=== PATIENT | male | born 1935 | race Caucasian/White ===

== ENCOUNTER 2023-03-24 15:36 | Observation (INO) | payer MEDICARE ==
[2023-03-24] MEDS ORDERED: DUONEB 0.5-3 MG/3 ml Neb IH ONE (15:43)
[2023-03-24] MEDS: DUONEB 0.5-3 MG/3 ml Neb IH ONE (15:49)
[2023-03-24 16:09] LABS: BASOPHIL % 0.3 % (0.0-0.4); Basophil (Absolute #) 0.06 x10^3/uL (0-0.4); Eosinophil % 0.1 % (0.00-5.0); Eosinophil (Absolute #) 0.02 x10^3/uL (0-0.5); Hematocrit 31.3 % (42-50); Hemoglobin 10.1 g/dL (12.5-18.0); IMMATURE GRAN # 0.12 x10^3u/L (0.00-0.03); IMMATURE GRAN % 0.7 % (0.00-0.4); Lymphocyte (Absolute #) 0.51 x10^3/uL (1.0-4.6); Lymphocytes % 2.8 % (24.0-44.0); Mean Cell Volume 84.1 fL (78-100); Mean Corpuscular Hemoglobin 27.2 pg (26-32); Mean Corpuscular Hgb Concent. 32.3 g/dL (32-36); Mean Platelet Volume 10.4 fL (7.5-11.0); Monocyte (Absolute #) 3.03 x10^3/uL (0.0-1.3); Monocytes % 16.6 % (0.0-12.0); Neutrophil % 79.5 % (36.0-66.0); Platelet Count 316 x10^3/uL (150-450); Red Blood Count 3.72 x10^6/uL (4.1-5.6); Red Cell Distribution Width 17.1 % (11.5-14.0); White Blood Count 18.2 x10^3/uL (4.0-10.5)
[2023-03-24 16:24] LABS: ALBUMIN 4.4 g/dL (3.5-5.0); ANION GAP 12.4 MEQ/L (5-15); BILIRUBIN,TOTAL 0.6 mg/dL (0.2-1.3); Calcium 9.3 mg/dL (8.4-10.2); Creatinine 1 0.51 mg/dL (0.66-1.25); EST GLOMERULAR FILTRATION RATE 99.4 ML/MIN; Total Protein 7.4 g/dL (6.3-8.2)
--- NOTE | 2023-03-24 16:25 | XRAY ---
Indication: Dyspnea. Cough. Fatigue. Comparison: July 10, 2021 Portable chest again demonstrates COPD with new left lower lobe pneumonic infiltrate. Remaining heart and right lung unremarkable. Bony thorax intact again with osteopenia, degenerative changes, and dextroscoliosis.
[2023-03-24 16:41] LABS: PROTIME 10.9 SECONDS (9.4-12.5); PTT 36.8 SECONDS (25.1-36.5)
--- NOTE | 2023-03-24 16:44 | ERPHSYRPT ---
- History of Present Illness Source: patient Exam Limitations: other (Somewhat of a poor historian) Patient Subjective Stated Complaint: sob and back pain for past month Triage Nursing Assessment: C/o increased shortness of breath past month and worse today, States h/o copd, denies chest pain. Took albuterol and symbicort inhaler today and was his daughters inhalers. Has home o2. Physician History: Patient is an 87-year-old male who is 2 L O2 dependent at home and continues to smoke less than 1 pack a day presents with dyspnea for 5 days. Patient states he had a cough which has resolved and he has chronic coryza. He denies any chest pain, nausea, vomiting, diarrhea, melena, and hematochezia. Dyspnea is worse upon exertion. Timing/Duration: other (5 days) Activities at Onset: rest (Rest) Severity of Dyspnea-Max: severe Severity of Dyspnea-Current: moderate Possible Cause: frequent episodes Modifying Factors: Improves With: other (Dyspnea on exertion) Associated Symptoms: cough, weakness Allergies/Adverse Reactions: No Known Drug Allergies Allergy (Unverified 03/24/23 15:40) Home Medications: No Reportable Medications [No Reported Medications] 03/24/23 [History] Hx Influenza Vaccination/Date Given: No Immunizations Up to Date: No Travel Risk - International Travel Have you traveled outside of the country in past 3 weeks: No - Coronavirus Screening Are you exhibiting any of the following symptoms?: No Symptoms: Shortness of Breath Close contact with a COVID-19 positive Pt in past 14-21 Days: No - Vaccine Status Have you recieved a Covid-19 vaccination: No - Review of Systems Constitutional: No Symptoms, Malaise Eyes: No Symptoms Ears, Nose, & Throat: No Symptoms, Nose Pain, Nose Congestion Respiratory: Cough, Dyspnea Cardiac: No Symptoms Abdominal/Gastrointestinal: No Symptoms Genitourinary Symptoms: No Symptoms Musculoskeletal: No Symptoms Skin: No Symptoms Neurological: No Symptoms Psychological: No Symptoms Endocrine: No Symptoms Hematologic/Lymphatic: No Symptoms Immunological/Allergic: No Symptoms - Past Medical History Pertinent Past Medical History: No Neurological History: No Pertinent History ENT History: No Pertinent History Cardiac History: No Pertinent History Respiratory History: COPD Endocrine Medical History: No Pertinent History GI Medical History: No Pertinent History History: No Pertinent History Psycho-Social History: No Pertinent History Male Reproductive Disorders: No Pertinent History - Past Surgical History Past Surgical History: Yes Neuro Surgical History: No Pertinent History Cardiac: No Pertinent History Respiratory: No Pertinent History Gastrointestinal: No Pertinent History Genitourinary: No Pertinent History Musculoskeletal: No Pertinent History Male Surgical History: Other Other Surgical History: hydrocele surgery - Social History Smoking Status: Current every day smoker Exposure to second hand smoke: Yes Drug Use: none Patient Lives Alone: Yes - Nursing Vital Signs Nursing Vital Signs: Initial Vital Signs Temperature 97.9 F 03/24/23 15:41 Pulse Rate 130 H 03/24/23 15:41 Respiratory Rate 28 H 03/24/23 15:41 Blood Pressure 156/118 03/24/23 15:41 O2 Sat by Pulse Oximetry 90 L 03/24/23 15:41 Pain Scale Pain Intensity 0 Hypertensive, tachycardic, borderline sats. - Physical Exam General Appearance: mild distress Eye Exam: PERRL/EOMI Ears, Nose, Throat Exam: hearing grossly normal, normal ENT inspection, normal pharynx, No abnormal TM (R), No abnormal TM (L) Neck Exam: normal inspection, non-tender, No Brudzinski, No Kernig's, No me ningismus Respiratory Exam: respiratory distress (Mild to moderate upon arrival), diminished breath sounds (Markedly decreased breath sounds bilaterally upon presentation), prolonged expirations Cardiovascular/Chest Exam: tachycardia, No murmur Abdominal/Gastrointestinal Exam: soft, normal bowel sounds Extremity Exam: non-tender, normal range of motion, normal inspection, normal capillary refill Peripheral Pulses Exam: carotid (R): 2+, carotid (L): 2+ Neurologic Exam: alert, oriented x 3, cooperative, drawbridge operator II-XII nml as tested, normal mood/affect, nml station & gait, sensation nml Skin Exam: normal color, warm, dry Lymphatic Exam: No adenopathy SpO2 Interpretation: borderline oxygenation SpO2: 93 O2 Delivery: Nasal Cannula - Course EKG Interpreted by Me: RATE (Sinus tachycardia/rate 114/normal QT-QTc/LVH with strain pattern/mildly poor R wave progression/nonspecific ST wave changes/artifact present/interpreted contemporaneously per ER physician.) - Radiology Exams Chest X-ray Interpretation: Reviewed by me (Left lower lobe infiltrate per Rad) - CT Exams Chest CT Interpretation: Discussed w/radiologist (CTA of the chest/no PE/left lower lobe and lingular pneumonia with small effusion per radiologist.) Ordered Tests: Active Orders 24 hr Category Date Time Status Bedrest ROUTINE Activity 03/24/23 20:01 Active Call Admit Doctor for Orders ON ADMISSION Care 03/24/23 20:00 Active Code Status Order ROUTINE Care 03/24/23 20:00 Active EKG-ER Only STAT Care 03/24/23 15:42 Active Fall Protocol ROUTINE Care 03/24/23 20:[address] in Observation ROUTINE Care 03/24/23 20:00 Active Telemetry q6h Care 03/24/23 20:00 Active Heart-Healthy Diet Diet 03/25/23 Breakfast Active CHEST 1 VIEW (PORTABLE) Stat Exams 03/24/23 15:41 Completed CHEST WITH CONTRAST [CT] Stat Exams 03/24/23 17:59 Taken BLOOD CULTURE Stat Lab 03/24/23 17:26 Received CBC W DIFF Stat Lab 03/24/23 16:04 Completed CMP Stat Lab 03/24/23 16:04 Completed D-DIMER QUANTITATIVE Stat Lab 03/24/23 17:26 Completed Lactic Acid Stat Lab 03/24/23 17:06 Completed NT PRO BNPII Stat Lab 03/24/23 16:04 Completed PROTIME WITH INR Stat Lab 03/24/23 16:04 Completed PTT Stat Lab 03/24/23 16:04 Completed TROPONIN Q4H Lab 03/24/23 16:04 Completed TROPONIN Q4H Lab 03/24/23 18:51 Completed TROPONIN Q4H Lab 03/24/23 23:45 Ordered Oxygen Nasal Cannula 2 lpm RT 03/24/23 20:00 Active Pulse Oximetry CONTINUOUS RT 03/24/23 20:01 Active Respiratory Therapy Assessment DAILY RT 03/24/23 15:50 Active Transfer Order Routine Transfer 03/24/23 Ordered Medication Summary Discontinued Medications Generic Name Dose Route Start Last Admin Trade Name Freq PRN Reason Stop Dose Admin Albuterol/Ipratropium 3 ml 03/24/23 15:40 03/24/23 15:49 Ipratropium/Albuterol Sulfate 3 Ml Ampul.Neb IH 03/24/23 15:41 3 ml STAT ONE Administration Albuterol/Ipratropium Confirm 03/24/23 15:43 Ipratropium/Albuterol Sulfate 3 Ml Ampul.Neb Administered 03/24/23 15:44 Dose 3 ml IH .STK-MED ONE Aspirin 324 mg 03/24/23 19:59 03/24/23 20:01 Aspirin 81 Mg Tab.Chew PO 03/24/23 20:00 324 mg STAT ONE Administration Aspirin Confirm 03/24/23 20:01 Aspirin 81 Mg Tab.Chew Administered 03/24/23 20:02 Dose 324 mg .ROUTE .STK-MED ONE Ceftriaxone Sodium 1 gm in 100 mls @ 200 mls/hr 03/24/23 16:53 03/24/23 18:25 Rocephin 1 Gm / 100 Ml Nacl IV 03/24/23 17:22 Infused STAT ONE Infusion Ceftriaxone Sodium Confirm 03/24/23 16:58 Rocephin 1 Gm / 100 Ml Nacl Administered 03/24/23 16:59 Dose 1 gm in 100 mls @ ud IV .STK-MED ONE Azithromycin 500 mg in 250 mls @ 250 mls/hr 03/24/23 19:48 03/24/23 19:58 Zithromax 500 Mg/ 250 Ml Nacl Premix IV 03/24/23 20:47 250 mls/hr STAT STA 250 mls/hr Administration Azithromycin Confirm 03/24/23 19:52 Zithromax 500 Mg/ 250 Ml Nacl Premix Administered 03/24/23 19:53 Dose 500 mg in 250 mls @ ud IV .STK-MED ONE Lab/Rad Data: Laboratory Result Diagrams 03/24/23 16:04 03/24/23 16:04 Laboratory Results 03/24/23 03/24/23 03/24/23 Range/Units 18:51 17:26 17:06 WBC (4.0-10.5) x10^3/uL RBC (4.1-5.6) x10^6/uL Hgb (12.5-18.0) g/dL Hct (42-50) % MCV (78-100) fL MCH (26-32) pg MCHC (32-36) g/dL RDW (11.5-14.0) % Plt Count (150-450) x10^3/uL MPV (7.5-11.0) fL Gran % (36.0-66.0) % Immature Gran % (Auto) (0.00-0.4) % Nucleat RBC Rel Count (0.00-0.1) % Eos # (Auto) (0-0.5) x10^3/uL Immature Gran # (Auto) (0.00-0.03) x10^3u/L Absolute Lymphs (auto) (1.0-4.6) x10^3/uL Absolute Monos (auto) (0.0-1.3) x10^3/uL Absolute Nucleated RBC (0.00-0.01) x10^3u/L Lymphocytes % (24.0-44.0) % Monocytes % (0.0-12.0) % Eosinophils % (0.00-5.0) % Basophils % (0.0-0.4) % Absolute Granulocytes (1.4-6.9) x10^3/uL Basophils # (0-0.4) x10^3/uL PT (9.4-12.5) SECONDS INR (0.8-3.0) APTT (25.1-36.5) SECONDS D-Dimer 0.99 H* (0.0-0.50) mg/L Sodium (137-145) mmol/L Potassium (3.5-5.1) mmol/L Chloride (98-107) mmol/L Carbon Dioxide (22-30) mmol/L Anion Gap (5-15) MEQ/L BUN (9-20) mg/dL Creatinine (0.66-1.25) mg/dL Estimated GFR ML/MIN Glucose (74-106) mg/dL Lactic Acid 1.3 (0.4-2.0) Calcium (8.4-10.2) mg/dL Total Bilirubin (0.2-1.3) mg/dL AST (17-59) U/L ALT (0-50) U/L Alkaline Phosphatase (38-126) U/L Troponin I 0.053 H* (0.000-0.034) ng/mL NT-Pro-B Natriuret Pep (<300) pg/mL Serum Total Protein (6.3-8.2) g/dL Albumin (3.5-5.0) g/dL Influenza Type A Ag (NEGATIVE) Influenza Type B Ag (NEGATIVE) RSV (PCR) (NEGATIVE) SARS-CoV-2 (PCR) (NEGATIVE) Slides for Path Review 03/24/23 03/24/23 03/24/23 Range/Units 16:07 16:04 16:04 WBC (4.0-10.5) x10^3/uL RBC (4.1-5.6) x10^6/uL Hgb (12.5-18.0) g/dL Hct (42-50) % MCV (78-100) fL MCH (26-32) pg MCHC (32-36) g/dL RDW (11.5-14.0) % Plt Count (150-450) x10^3/uL MPV (7.5-11.0) fL Gran % (36.0-66.0) % Immature Gran % (Auto) (0.00-0.4) % Nucleat RBC Rel Count (0.00-0.1) % Eos # (Auto) (0-0.5) x10^3/uL Immature Gran # (Auto) (0.00-0.03) x10^3u/L Absolute Lymphs (auto) (1.0-4.6) x10^3/uL Absolute Monos (auto) (0.0-1.3) x10^3/uL Absolute Nucleated RBC (0.00-0.01) x10^3u/L Lymphocytes % (24.0-44.0) % Monocytes % (0.0-12.0) % Eosinophils % (0.00-5.0) % Basophils % (0.0-0.4) % Absolute Granulocytes (1.4-6.9) x10^3/uL Basophils # (0-0.4) x10^3/uL PT (9.4-12.5) SECONDS INR (0.8-3.0) APTT (25.1-36.5) SECONDS D-Dimer (0.0-0.50) mg/L Sodium (137-145) mmol/L Potassium (3.5-5.1) mmol/L Chloride (98-107) mmol/L Carbon Dioxide (22-30) mmol/L Anion Gap (5-15) MEQ/L BUN (9-20) mg/dL Creatinine (0.66-1.25) mg/dL Estimated GFR ML/MIN Glucose (74-106) mg/dL Lactic Acid (0.4-2.0) Calcium (8.4-10.2) mg/dL Total Bilirubin (0.2-1.3) mg/dL AST (17-59) U/L ALT (0-50) U/L Alkaline Phosphatase (38-126) U/L Troponin I 0.044 H* (0.000-0.034) ng/mL NT-Pro-B Natriuret Pep 2730 (<300) pg/mL Serum Total Protein (6.3-8.2) g/dL Albumin (3.5-5.0) g/dL Influenza Type A Ag NEGATIVE (NEGATIVE) Influenza Type B Ag NEGATIVE (NEGATIVE) RSV (PCR) NEGATIVE (NEGATIVE) SARS-CoV-2 (PCR) NEGATIVE (NEGATIVE) Slides for Path Review 03/24/23 03/24/23 03/24/23 Range/Units 16:04 16:04 16:04 WBC 18.2 H (4.0-10.5) x10^3/uL RBC 3.72 L (4.1-5.6) x10^6/uL Hgb 10.1 L (12.5-18.0) g/dL Hct 31.3 L (42-50) % MCV 84.1 (78-100) fL MCH 27.2 (26-32) pg MCHC 32.3 (32-36) g/dL RDW 17.1 H (11.5-14.0) % Plt Count 316 (150-450) x10^3/uL MPV 10.4 (7.5-11.0) fL Gran % 79.5 H (36.0-66.0) % Immature Gran % (Auto) 0.7 H (0.00-0.4) % Nucleat RBC Rel Count 0.0 (0.00-0.1) % Eos # (Auto) 0.02 (0-0.5) x10^3/uL Immature Gran # (Auto) 0.12 H (0.00-0.03) x10^3u/L Absolute Lymphs (auto) 0.51 L (1.0-4.6) x10^3/uL Absolute Monos (auto) 3.03 H (0.0-1.3) x10^3/uL Absolute Nucleated RBC 0.00 (0.00-0.01) x10^3u/L Lymphocytes % 2.8 L (24.0-44.0) % Monocytes % 16.6 H (0.0-12.0) % Eosinophils % 0.1 (0.00-5.0) % Basophils % 0.3 (0.0-0.4) % Absolute Granulocytes 14.50 H (1.4-6.9) x10^3/uL Basophils # 0.06 (0-0.4) x10^3/uL PT 10.9 (9.4-12.5) SECONDS INR 1.00 (0.8-3.0) APTT 36.8 H (25.1-36.5) SECONDS D-Dimer (0.0-0.50) mg/L Sodium 134 L (137-145) mmol/L Potassium 4.0 (3.5-5.1) mmol/L Chloride 97 L (98-107) mmol/L Carbon Dioxide 28 (22-30) mmol/L Anion Gap 12.4 (5-15) MEQ/L BUN 13 (9-20) mg/dL Creatinine 0.51 L (0.66-1.25) mg/dL Estimated GFR 99.4 ML/MIN Glucose 106 (74-106) mg/dL Lactic Acid (0.4-2.0) Calcium 9.3 (8.4-10.2) mg/dL Total Bilirubin 0.60 (0.2-1.3) mg/dL AST 25 (17-59) U/L ALT 18 (0-50) U/L Alkaline Phosphatase 65 (38-126) U/L Troponin I (0.000-0.034) ng/mL NT-Pro-B Natriuret Pep (<300) pg/mL Serum Total Protein 7.4 (6.3-8.2) g/dL Albumin 4.4 (3.5-5.0) g/dL Influenza Type A Ag (NEGATIVE) Influenza Type B Ag (NEGATIVE) RSV (PCR) (NEGATIVE) SARS-CoV-2 (PCR) (NEGATIVE) Slides for Path Review YES - Progress Progress Note: 03/24/23 21:30 Nursing note and vital signs reviewed. No food or housing insecurity noted. Additional history per EMS. All lab results reviewed and shared with patient. Chest x-ray result reviewed and shared with patient. CTA of chest reviewed and shared with patient. 03/24/23 21:31 Patient with left lower lobe pneumonia and a small effusion on chest x-ray and CTA of the chest. Patient without evidence of PE at this time. Patient has a mildly elevated troponin with a second opponent just slightly higher than the first. 03/24/23 21:32 Patient denied chest pain during his entire ER visit. No acute EKG changes noted while patient was in the ER. Blood cultures x 2 done in the ER, 1 g IV Rocephin, 500 mg IV Zithromax, 324 mg ASA p.o. 03/24/23 21:33 Patient with observation admit due to pneumonia on CT and chest x-ray and also mildly elevated troponin. Patient is a full code. Observation admit per Dr. Del Rio. Blood Culture(s) Obtained: Yes Antibiotics given: Yes Discussed with : Armando Counseled pt/family regarding: lab results, diagnosis, rad results Medical Desision Making - Independent Historian Additional History obtained from: EMS - Discussion of managment Care discussed with:: hospitalist Reviewed:: Test results, Need for additional workup Agreed on:: place in obs Will see patient: in hospital - Diagnostic Testing Diagnostic test were ordered, analyzed, and reviewed by me: Yes Radiological Interpretation: Reviewed by me - Risk of complications The pt has a high risk of morbidity or mortality based on: Drug therapy requiring intensive monitoring for toxicity - Departure Departure Disposition: Observation Clinical Impression: Pneumonia, Elevated troponin Condition: Stable Critical Care Time: No Referrals: ELLIOTT AMATO [Primary Care Provider] - Follow up/PCP as directed
[2023-03-24 16:48] LABS: INFLUENZA A NEGATIVE (NEGATIVE); INFLUENZA B NEGATIVE (NEGATIVE); RESPIRATORY SYNCTIAL VIRUS NEGATIVE (NEGATIVE); SARS-CoV-2 Xpert Express NEGATIVE (NEGATIVE)
[2023-03-24 16:55] LABS: Slide Review 1 YES
[2023-03-24] MEDS ORDERED: ROCEPHIN 1 GM / 100 ML NaCl 1 GM/100 ML IVPB IV ONE (16:58)
[2023-03-24] MEDS: ROCEPHIN 1 GM / 100 ML NaCl 1 GM/100 ML IVPB IV ONE (17:13)
[2023-03-24] MEDS ORDERED: Zithromax 500 MG/ 250 ML NaCl Premix 500 MG/250 ML IVPB IV ONE (19:52)
[2023-03-24] MEDS: Zithromax 500 MG/ 250 ML NaCl Premix 500 MG/250 ML IVPB IV STA (19:58)
[2023-03-24] MEDS ORDERED: BABY ASPIRIN 81 MG CHEW ONE (20:01)
[2023-03-24] MEDS: BABY ASPIRIN 81 MG CHEW PO ONE (20:01)
[2023-03-24] MEDS: ROCEPHIN 1 GM / 100 ML NaCl 1 GM/100 ML IVPB IV SCH (23:28)
[2023-03-24] MEDS: Nicoderm CQ 21 MG TOP SCH (23:37)
[2023-03-24] MEDS: TYLENOL 325 MG PO PRN (23:40)
--- NOTE | 2023-03-24 23:44 | PCM.HP ---
History of Present Illness - Chief Complaint Chief Complaint: PNEUMONIA, ELEVATED TROPONINS Date: 03/24/23 History of Present Illness: is a 87 year old male (with a history of COPD on home oxygen but lost to follow up with only use of prn MDIs from family members) who presents to the ED with increased shortness of breath and dyspnea with exertion over the past month and worse today. He also had a cough which improved and reports chronic coryza. He denies any history of CAD or cardiac stress test, and any diabetes. No chest pain. He continues to smoke. He feels like his dyspnea has improved after initiation of ED treatment. - Review of Systems Constitutional: No Symptoms Eyes: No Symptoms Ears, Nose, & Throat: No Symptoms Respiratory: Cough, Short Of Breath, Wheezing Cardiac: No Symptoms Abdominal/Gastrointestinal: No Symptoms Genitourinary Symptoms: No Symptoms Musculoskeletal: No Symptoms Skin: No Symptoms Neurological: No Symptoms Psychological: No Symptoms Endocrine: No Symptoms Hematologic/Lymphatic: No Symptoms Immunological/Allergic: No Symptoms All Other Systems: Reviewed and Negative Medications & Allergies Home Medications: Home Medication List No Reportable Medications [No Reported Medications] 03/24/23 [History Confirmed 03/24/23] Allergies/Adverse Reactions: Allergies Allergy/AdvReac Type Severity Reaction Status Date / Time No Known Drug Allergies Allergy Unverified 03/24/23 15:40 - Past Medical History Past Medical History: No Neurological History: No Pertinent History ENT History: No Pertinent History Cardiac History: No Pertinent History Respiratory History: COPD Endocrine Medical History: No Pertinent History Musculoskelatal History: No Pertinent History GI Medical History: Hernia History: No Pertinent History Pyscho-Social History: No Pertinent History Male Reproductive Disorders: No Pertinent History - Past Surgical History Past Surgical History: Yes Neuro Surgical History: No Pertinent History Cardiac History: No Pertinent History Respiratory Surgery: No Pertinent History GI Surgical History: No Pertinent History Genitourinary Surgical Hx: No Pertinent History Musculskeletal Surgical Hx: No Pertinent History Male Surgical History: Other Other Surgical History: hydrocele surgery - Social History Smoking Status: Current every day smoker How long have you smoked: 79 YEARS Exposure to second hand smoke: Yes Alcohol: Daily Drug Use: none - Physical Exam Vital Signs: Vital Signs - 24 hr Temp Pulse Resp BP BP Pulse Ox 03/24/23 22:00 99 03/24/23 21:47 98.1 F 108 H 22 133/63 99 03/24/23 21:36 93 L 03/24/23 20:01 97 H 22 152/73 94 L 03/24/23 19:30 150/73 99 03/24/23 19:18 137/72 100 03/24/23 19:00 93 H 22 137/72 96 03/24/23 18:01 125/77 77 L 03/24/23 15:51 121 H 26 H 93 L 03/24/23 15:41 97.9 F 130 H 28 H 156/118 90 L General Appearance: no apparent distress, alert Neurologic Exam: alert, oriented x 3, cooperative, driver guard II-XII nml as tested, normal mood/affect Eye Exam: PERRL/EOMI, eyes nml inspection Ears, Nose, Throat Exam: normal ENT inspection Neck Exam: normal inspection, non-tender, supple, full range of motion Respiratory Exam: diminished breath sounds, prolonged expirations, wheezing Cardiovascular Exam: regular rate/rhythm, normal heart sounds Gastrointestinal/Abdomen Exam: soft, normal bowel sounds Back Exam: normal range of motion Extremity Exam: normal inspection, normal range of motion Skin Exam: normal color Results - Labs Lab/Micro Results: Lab Results-Last 24 Hours 03/24/23 03/24/23 03/24/23 Range/Units 16:04 16:04 16:04 WBC 18.2 H (4.0-10.5) x10^3/uL RBC 3.72 L (4.1-5.6) x10^6/uL Hgb 10.1 L (12.5-18.0) g/dL Hct 31.3 L (42-50) % MCV 84.1 (78-100) fL MCH 27.2 (26-32) pg MCHC 32.3 (32-36) g/dL RDW 17.1 H (11.5-14.0) % Plt Count 316 (150-450) x10^3/uL MPV 10.4 (7.5-11.0) fL Gran % 79.5 H (36.0-66.0) % Immature Gran % (Auto) 0.7 H (0.00-0.4) % Nucleat RBC Rel Count 0.0 (0.00-0.1) % Eos # (Auto) 0.02 (0-0.5) x10^3/uL Immature Gran # (Auto) 0.12 H (0.00-0.03) x10^3u/L Absolute Lymphs (auto) 0.51 L (1.0-4.6) x10^3/uL Absolute Monos (auto) 3.03 H (0.0-1.3) x10^3/uL Absolute Nucleated RBC 0.00 (0.00-0.01) x10^3u/L Lymphocytes % 2.8 L (24.0-44.0) % Monocytes % 16.6 H (0.0-12.0) % Eosinophils % 0.1 (0.00-5.0) % Basophils % 0.3 (0.0-0.4) % Absolute Granulocytes 14.50 H (1.4-6.9) x10^3/uL Basophils # 0.06 (0-0.4) x10^3/uL PT 10.9 (9.4-12.5) SECONDS INR 1.00 (0.8-3.0) APTT 36.8 H (25.1-36.5) SECONDS D-Dimer (0.0-0.50) mg/L Sodium 134 L (137-145) mmol/L Potassium 4.0 (3.5-5.1) mmol/L Chloride 97 L (98-107) mmol/L Carbon Dioxide 28 (22-30) mmol/L Anion Gap 12.4 (5-15) MEQ/L BUN 13 (9-20) mg/dL Creatinine 0.51 L (0.66-1.25) mg/dL Estimated GFR 99.4 ML/MIN Glucose 106 (74-106) mg/dL Lactic Acid (0.4-2.0) Calcium 9.3 (8.4-10.2) mg/dL Total Bilirubin 0.60 (0.2-1.3) mg/dL AST 25 (17-59) U/L ALT 18 (0-50) U/L Alkaline Phosphatase 65 (38-126) U/L Troponin I (0.000-0.034) ng/mL NT-Pro-B Natriuret Pep (<300) pg/mL Serum Total Protein 7.4 (6.3-8.2) g/dL Albumin 4.4 (3.5-5.0) g/dL Influenza Type A Ag (NEGATIVE) Influenza Type B Ag (NEGATIVE) RSV (PCR) (NEGATIVE) SARS-CoV-2 (PCR) (NEGATIVE) Slides for Path Review YES 03/24/23 03/24/23 03/24/23 Range/Units 16:04 16:04 16:07 WBC (4.0-10.5) x10^3/uL RBC (4.1-5.6) x10^6/uL Hgb (12.5-18.0) g/dL Hct (42-50) % MCV (78-100) fL MCH (26-32) pg MCHC (32-36) g/dL RDW (11.5-14.0) % Plt Count (150-450) x10^3/uL MPV (7.5-11.0) fL Gran % (36.0-66.0) % Immature Gran % (Auto) (0.00-0.4) % Nucleat RBC Rel Count (0.00-0.1) % Eos # (Auto) (0-0.5) x10^3/uL Immature Gran # (Auto) (0.00-0.03) x10^3u/L Absolute Lymphs (auto) (1.0-4.6) x10^3/uL Absolute Monos (auto) (0.0-1.3) x10^3/uL Absolute Nucleated RBC (0.00-0.01) x10^3u/L Lymphocytes % (24.0-44.0) % Monocytes % (0.0-12.0) % Eosinophils % (0.00-5.0) % Basophils % (0.0-0.4) % Absolute Granulocytes (1.4-6.9) x10^3/uL Basophils # (0-0.4) x10^3/uL PT (9.4-12.5) SECONDS INR (0.8-3.0) APTT (25.1-36.5) SECONDS D-Dimer (0.0-0.50) mg/L Sodium (137-145) mmol/L Potassium (3.5-5.1) mmol/L Chloride (98-107) mmol/L Carbon Dioxide (22-30) mmol/L Anion Gap (5-15) MEQ/L BUN (9-20) mg/dL Creatinine (0.66-1.25) mg/dL Estimated GFR ML/MIN Glucose (74-106) mg/dL Lactic Acid (0.4-2.0) Calcium (8.4-10.2) mg/dL Total Bilirubin (0.2-1.3) mg/dL AST (17-59) U/L ALT (0-50) U/L Alkaline Phosphatase (38-126) U/L Troponin I 0.044 H* (0.000-0.034) ng/mL NT-Pro-B Natriuret Pep 2730 (<300) pg/mL Serum Total Protein (6.3-8.2) g/dL Albumin (3.5-5.0) g/dL Influenza Type A Ag NEGATIVE (NEGATIVE) Influenza Type B Ag NEGATIVE (NEGATIVE) RSV (PCR) NEGATIVE (NEGATIVE) SARS-CoV-2 (PCR) NEGATIVE (NEGATIVE) Slides for Path Review 03/24/23 03/24/23 03/24/23 Range/Units 17:06 17:26 18:51 WBC (4.0-10.5) x10^3/uL RBC (4.1-5.6) x10^6/uL Hgb (12.5-18.0) g/dL Hct (42-50) % MCV (78-100) fL MCH (26-32) pg MCHC (32-36) g/dL RDW (11.5-14.0) % Plt Count (150-450) x10^3/uL MPV (7.5-11.0) fL Gran % (36.0-66.0) % Immature Gran % (Auto) (0.00-0.4) % Nucleat RBC Rel Count (0.00-0.1) % Eos # (Auto) (0-0.5) x10^3/uL Immature Gran # (Auto) (0.00-0.03) x10^3u/L Absolute Lymphs (auto) (1.0-4.6) x10^3/uL Absolute Monos (auto) (0.0-1.3) x10^3/uL Absolute Nucleated RBC (0.00-0.01) x10^3u/L Lymphocytes % (24.0-44.0) % Monocytes % (0.0-12.0) % Eosinophils % (0.00-5.0) % Basophils % (0.0-0.4) % Absolute Granulocytes (1.4-6.9) x10^3/uL Basophils # (0-0.4) x10^3/uL PT (9.4-12.5) SECONDS INR (0.8-3.0) APTT (25.1-36.5) SECONDS D-Dimer 0.99 H* (0.0-0.50) mg/L Sodium (137-145) mmol/L Potassium (3.5-5.1) mmol/L Chloride (98-107) mmol/L Carbon Dioxide (22-30) mmol/L Anion Gap (5-15) MEQ/L BUN (9-20) mg/dL Creatinine (0.66-1.25) mg/dL Estimated GFR ML/MIN Glucose (74-106) mg/dL Lactic Acid 1.3 (0.4-2.0) Calcium (8.4-10.2) mg/dL Total Bilirubin (0.2-1.3) mg/dL AST (17-59) U/L ALT (0-50) U/L Alkaline Phosphatase (38-126) U/L Troponin I 0.053 H* (0.000-0.034) ng/mL NT-Pro-B Natriuret Pep (<300) pg/mL Serum Total Protein (6.3-8.2) g/dL Albumin (3.5-5.0) g/dL Influenza Type A Ag (NEGATIVE) Influenza Type B Ag (NEGATIVE) RSV (PCR) (NEGATIVE) SARS-CoV-2 (PCR) (NEGATIVE) Slides for Path Review - Radiology Impressions Radiology Exams & Impressions: Radiology Procedures Category Date Time Status CHEST 1 VIEW (PORTABLE) Stat Exams 03/24/23 15:41 Completed CHEST WITH CONTRAST [CT] Stat Exams 03/24/23 17:59 Taken - Other Procedures and Tests Respiratory Therapy 03/24/23 15:50 Respiratory Therapy Assessment DAILY 03/24/23 20:00 Oxygen Nasal Cannula 2 lpm 03/24/23 22:17 RT Screen per Nursing Assess ONCE Smoking Cessation Education ONCE 03/24/23 22:45 EKG REPEAT IN AM Respiratory Therapy Consult ONCE Assessment/Plan (1) Pneumonia Current Visit: Yes Status: Acute Assessment & Plan: IV antibiotics. ST eval to rule out dysphagia due to LLL infiltrate. Code(s): J18.9 - PNEUMONIA, UNSPECIFIED ORGANISM (2) COPD exacerbation Current Visit: Yes Status: Acute Assessment & Plan: Nebs, steroids (IV), wean O2 as tolerated. Patient was reported to have saturations as low as 70% by EMS. Will need to asssess ambulatory O2 needs. Will need new prescriptions for a chronic regimen at discharge. CM to eval to [facility]. Will need referrals to PCP and pulmonology. Code(s): J44.1 - CHRONIC OBSTRUCTIVE PULMONARY DISEASE W (ACUTE) EXACERBATION (3) Cough Current Visit: Yes Status: Acute Assessment & Plan: Mucinex. Code(s): R05.9 - COUGH, UNSPECIFIED Telemedicine Encounter - Telemedicine Encounter Telemedicine Encounter: The entirety of this encounter was performed via Telemedicine"
[2023-03-25] MEDS: DUONEB 0.5-3 MG/3 ml Neb IH SCH (01:09)
[2023-03-25] MEDS ORDERED: Ecotrin 325 MG ONE (01:09)
[2023-03-25] MEDS: Ecotrin 325 MG PO SCH (01:10)
[2023-03-25 04:09] LABS: ANION GAP 9.3 MEQ/L (5-15); Absolute Neutrophil Ct (ANC) 9.47 x10^3/uL (1.4-6.9); BASOPHIL % 0.3 % (0.0-0.4); Basophil (Absolute #) 0.04 x10^3/uL (0-0.4); Calcium 8.8 mg/dL (8.4-10.2); Creatinine 1 0.54 mg/dL (0.66-1.25); EST GLOMERULAR FILTRATION RATE 97.7 ML/MIN; Eosinophil % 0.4 % (0.00-5.0); Eosinophil (Absolute #) 0.05 x10^3/uL (0-0.5); Hemoglobin 8.8 g/dL (12.5-18.0); IMMATURE GRAN # 0.08 x10^3u/L (0.00-0.03); IMMATURE GRAN % 0.7 % (0.00-0.4); Lymphocyte (Absolute #) 0.37 x10^3/uL (1.0-4.6); Lymphocytes % 3.1 % (24.0-44.0); Mean Cell Volume 83.3 fL (78-100); Mean Corpuscular Hemoglobin 27.2 pg (26-32); Mean Corpuscular Hgb Concent. 32.6 g/dL (32-36); Mean Platelet Volume 10.8 fL (7.5-11.0); Neutrophil % 79.5 % (36.0-66.0); Platelet Count 289 x10^3/uL (150-450); Red Blood Count 3.24 x10^6/uL (4.1-5.6); Red Cell Distribution Width 17.1 % (11.5-14.0); White Blood Count 11.9 x10^3/uL (4.0-10.5)
[2023-03-25 04:47] LABS: Slide Review 1 YES
[2023-03-25 05:02] LABS: TSH, 3RD Generation 2.28 mIU/L (0.47-4.68)
[2023-03-25] MEDS ORDERED: solu-MEDROL ONE (05:28)
[2023-03-25] MEDS ORDERED: Sterile H2O 10 ml IJ ONE (05:28)
--- NOTE | 2023-03-25 05:47 | PCM.NOTE ---
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 He also had a cough which improved and reports chronic coryza. CXR showing COPD with LLL pneumonia. EKG- RATE (Sinus tachycardia/rate 114/normal QT-QTc/LVH with strain pattern/mildly poor R wave progression/nonspecific ST wave changes/artifact present/interpreted contemporaneously per ER physician.(TA of the chest/no PE/left lower lobe and lingular pneumonia with small effusion per radiologist. Patient admitted with COPD exacerbation secondary to pneumonia. - Review of Systems Constitutional: No Symptoms Eyes: No Symptoms Ears, Nose, & Throat: No Symptoms Respiratory: Cough, Short Of Breath Cardiac: No Symptoms Abdominal/Gastrointestinal: No Symptoms Genitourinary Symptoms: No Symptoms Musculoskeletal: No Symptoms Skin: No Symptoms Neurological: No Symptoms Psychological: No Symptoms Endocrine: No Symptoms Hematologic/Lymphatic: Anemia Objective Exam General Appearance: no apparent distress Neurologic Exam: alert, oriented x 3, cooperative Skin Exam: normal color Eye Exam: PERRL Ears, Nose, Throat Exam: normal ENT inspection Neck Exam: normal inspection Respiratory Exam: diminished breath sounds Cardiovascular Exam: tachycardia Gastrointestinal/Abdomen Exam: soft, normal bowel sounds Extremity Exam: normal inspection Back Exam: normal inspection Male Genitalia Exam: deferred Rectal Exam: deferred OBJECTIVE DATA Vital Signs: Vital Signs - 24 hr Temp Pulse Resp BP BP Pulse Ox 03/25/23 04:00 98.1 F 93 H 18 134/62 100 03/25/23 01:12 96 03/24/23 22:00 99 03/24/23 21:47 98.1 F 108 H 22 133/63 99 03/24/23 21:36 93 L 03/24/23 20:01 97 H 22 152/73 94 L 03/24/23 19:30 150/73 99 03/24/23 19:18 137/72 100 03/24/23 19:00 93 H 22 137/72 96 03/24/23 18:01 125/77 77 L 03/24/23 15:51 121 H 26 H 93 L 03/24/23 15:41 97.9 F 130 H 28 H 156/118 90 L Pain Assessment - Last Documented Pain Intensity 6 Pain Scale Used 0-10 Pain Scale Intake and Output: Intake & Output 03/22/23 03/23/23 03/24/23 03/25/23 11:59 11:59 11:59 11:59 Weight 52.6 kg Lab Results: Lab Results-Last 24 Hours 03/24/23 03/24/23 03/24/23 Range/Units 00:01 16:04 16:04 WBC 18.2 H (4.0-10.5) x10^3/uL RBC 3.72 L (4.1-5.6) x10^6/uL Hgb 10.1 L (12.5-18.0) g/dL Hct 31.3 L (42-50) % MCV 84.1 (78-100) fL MCH 27.2 (26-32) pg MCHC 32.3 (32-36) g/dL RDW 17.1 H (11.5-14.0) % Plt Count 316 (150-450) x10^3/uL MPV 10.4 (7.5-11.0) fL Gran % 79.5 H (36.0-66.0) % Immature Gran % (Auto) 0.7 H (0.00-0.4) % Nucleat RBC Rel Count 0.0 (0.00-0.1) % Eos # (Auto) 0.02 (0-0.5) x10^3/uL Immature Gran # (Auto) 0.12 H (0.00-0.03) x10^3u/L Absolute Lymphs (auto) 0.51 L (1.0-4.6) x10^3/uL Absolute Monos (auto) 3.03 H (0.0-1.3) x10^3/uL Absolute Nucleated RBC 0.00 (0.00-0.01) x10^3u/L Lymphocytes % 2.8 L (24.0-44.0) % Monocytes % 16.6 H (0.0-12.0) % Eosinophils % 0.1 (0.00-5.0) % Basophils % 0.3 (0.0-0.4) % Absolute Granulocytes 14.50 H (1.4-6.9) x10^3/uL Basophils # 0.06 (0-0.4) x10^3/uL PT (9.4-12.5) SECONDS INR (0.8-3.0) APTT (25.1-36.5) SECONDS D-Dimer (0.0-0.50) mg/L Sodium 134 L (137-145) mmol/L Potassium 4.0 (3.5-5.1) mmol/L Chloride 97 L (98-107) mmol/L Carbon Dioxide 28 (22-30) mmol/L Anion Gap 12.4 (5-15) MEQ/L BUN 13 (9-20) mg/dL Creatinine 0.51 L (0.66-1.25) mg/dL Estimated GFR 99.4 ML/MIN Glucose 106 (74-106) mg/dL Hemoglobin A1c (4.5-6.0) % Lactic Acid (0.4-2.0) Calcium 9.3 (8.4-10.2) mg/dL Total Bilirubin 0.60 (0.2-1.3) mg/dL AST 25 (17-59) U/L ALT 18 (0-50) U/L Alkaline Phosphatase 65 (38-126) U/L Troponin I 0.060 H* (0.000-0.034) ng/mL NT-Pro-B Natriuret Pep (<300) pg/mL Serum Total Protein 7.4 (6.3-8.2) g/dL Albumin 4.4 (3.5-5.0) g/dL Triglycerides (30-150) mg/dL Cholesterol (50-200) mg/dL LDL Cholesterol (30-100) mg/dL HDL Cholesterol (40-60) mg/dL Heart Disease Risk Ratio TSH 3rd Generation (0.47-4.68) mIU/L Influenza Type A Ag (NEGATIVE) Influenza Type B Ag (NEGATIVE) RSV (PCR) (NEGATIVE) SARS-CoV-2 (PCR) (NEGATIVE) Slides for Path Review YES 03/24/23 03/24/23 03/24/23 Range/Units 16:04 16:04 16:04 WBC (4.0-10.5) x10^3/uL RBC (4.1-5.6) x10^6/uL Hgb (12.5-18.0) g/dL Hct (42-50) % MCV (78-100) fL MCH (26-32) pg MCHC (32-36) g/dL RDW (11.5-14.0) % Plt Count (150-450) x10^3/uL MPV (7.5-11.0) fL Gran % (36.0-66.0) % Immature Gran % (Auto) (0.00-0.4) % Nucleat RBC Rel Count (0.00-0.1) % Eos # (Auto) (0-0.5) x10^3/uL Immature Gran # (Auto) (0.00-0.03) x10^3u/L Absolute Lymphs (auto) (1.0-4.6) x10^3/uL Absolute Monos (auto) (0.0-1.3) x10^3/uL Absolute Nucleated RBC (0.00-0.01) x10^3u/L Lymphocytes % (24.0-44.0) % Monocytes % (0.0-12.0) % Eosinophils % (0.00-5.0) % Basophils % (0.0-0.4) % Absolute Granulocytes (1.4-6.9) x10^3/uL Basophils # (0-0.4) x10^3/uL PT 10.9 (9.4-12.5) SECONDS INR 1.00 (0.8-3.0) APTT 36.8 H (25.1-36.5) SECONDS D-Dimer (0.0-0.50) mg/L Sodium (137-145) mmol/L Potassium (3.5-5.1) mmol/L Chloride (98-107) mmol/L Carbon Dioxide (22-30) mmol/L Anion Gap (5-15) MEQ/L BUN (9-20) mg/dL Creatinine (0.66-1.25) mg/dL Estimated GFR ML/MIN Glucose (74-106) mg/dL Hemoglobin A1c (4.5-6.0) % Lactic Acid (0.4-2.0) Calcium (8.4-10.2) mg/dL Total Bilirubin (0.2-1.3) mg/dL AST (17-59) U/L ALT (0-50) U/L Alkaline Phosphatase (38-126) U/L Troponin I 0.044 H* (0.000-0.034) ng/mL NT-Pro-B Natriuret Pep 2730 (<300) pg/mL Serum Total Protein (6.3-8.2) g/dL Albumin (3.5-5.0) g/dL Triglycerides (30-150) mg/dL Cholesterol (50-200) mg/dL LDL Cholesterol (30-100) mg/dL HDL Cholesterol (40-60) mg/dL Heart Disease Risk Ratio TSH 3rd Generation (0.47-4.68) mIU/L Influenza Type A Ag (NEGATIVE) Influenza Type B Ag (NEGATIVE) RSV (PCR) (NEGATIVE) SARS-CoV-2 (PCR) (NEGATIVE) Slides for Path Review 03/24/23 03/24/23 03/24/23 Range/Units 16:07 17:06 17:26 WBC (4.0-10.5) x10^3/uL RBC (4.1-5.6) x10^6/uL Hgb (12.5-18.0) g/dL Hct (42-50) % MCV (78-100) fL MCH (26-32) pg MCHC (32-36) g/dL RDW (11.5-14.0) % Plt Count (150-450) x10^3/uL MPV (7.5-11.0) fL Gran % (36.0-66.0) % Immature Gran % (Auto) (0.00-0.4) % Nucleat RBC Rel Count (0.00-0.1) % Eos # (Auto) (0-0.5) x10^3/uL Immature Gran # (Auto) (0.00-0.03) x10^3u/L Absolute Lymphs (auto) (1.0-4.6) x10^3/uL Absolute Monos (auto) (0.0-1.3) x10^3/uL Absolute Nucleated RBC (0.00-0.01) x10^3u/L Lymphocytes % (24.0-44.0) % Monocytes % (0.0-12.0) % Eosinophils % (0.00-5.0) % Basophils % (0.0-0.4) % Absolute Granulocytes (1.4-6.9) x10^3/uL Basophils # (0-0.4) x10^3/uL PT (9.4-12.5) SECONDS INR (0.8-3.0) APTT (25.1-36.5) SECONDS D-Dimer 0.99 H* (0.0-0.50) mg/L Sodium (137-145) mmol/L Potassium (3.5-5.1) mmol/L Chloride (98-107) mmol/L Carbon Dioxide (22-30) mmol/L Anion Gap (5-15) MEQ/L BUN (9-20) mg/dL Creatinine (0.66-1.25) mg/dL Estimated GFR ML/MIN Glucose (74-106) mg/dL Hemoglobin A1c (4.5-6.0) % Lactic Acid 1.3 (0.4-2.0) Calcium (8.4-10.2) mg/dL Total Bilirubin (0.2-1.3) mg/dL AST (17-59) U/L ALT (0-50) U/L Alkaline Phosphatase (38-126) U/L Troponin I (0.000-0.034) ng/mL NT-Pro-B Natriuret Pep (<300) pg/mL Serum Total Protein (6.3-8.2) g/dL Albumin (3.5-5.0) g/dL Triglycerides (30-150) mg/dL Cholesterol (50-200) mg/dL LDL Cholesterol (30-100) mg/dL HDL Cholesterol (40-60) mg/dL Heart Disease Risk Ratio TSH 3rd Generation (0.47-4.68) mIU/L Influenza Type A Ag NEGATIVE (NEGATIVE) Influenza Type B Ag NEGATIVE (NEGATIVE) RSV (PCR) NEGATIVE (NEGATIVE) SARS-CoV-2 (PCR) NEGATIVE (NEGATIVE) Slides for Path Review 03/24/23 03/25/23 03/25/23 Range/Units 18:51 03:35 03:35 WBC (4.0-10.5) x10^3/uL RBC (4.1-5.6) x10^6/uL Hgb (12.5-18.0) g/dL Hct (42-50) % MCV (78-100) fL MCH (26-32) pg MCHC (32-36) g/dL RDW (11.5-14.0) % Plt Count (150-450) x10^3/uL MPV (7.5-11.0) fL Gran % (36.0-66.0) % Immature Gran % (Auto) (0.00-0.4) % Nucleat RBC Rel Count (0.00-0.1) % Eos # (Auto) (0-0.5) x10^3/uL Immature Gran # (Auto) (0.00-0.03) x10^3u/L Absolute Lymphs (auto) (1.0-4.6) x10^3/uL Absolute Monos (auto) (0.0-1.3) x10^3/uL Absolute Nucleated RBC (0.00-0.01) x10^3u/L Lymphocytes % (24.0-44.0) % Monocytes % (0.0-12.0) % Eosinophils % (0.00-5.0) % Basophils % (0.0-0.4) % Absolute Granulocytes (1.4-6.9) x10^3/uL Basophils # (0-0.4) x10^3/uL PT (9.4-12.5) SECONDS INR (0.8-3.0) APTT (25.1-36.5) SECONDS D-Dimer (0.0-0.50) mg/L Sodium (137-145) mmol/L Potassium (3.5-5.1) mmol/L Chloride (98-107) mmol/L Carbon Dioxide (22-30) mmol/L Anion Gap (5-15) MEQ/L BUN (9-20) mg/dL Creatinine (0.66-1.25) mg/dL Estimated GFR ML/MIN Glucose (74-106) mg/dL Hemoglobin A1c 5.04 (4.5-6.0) % Lactic Acid (0.4-2.0) Calcium (8.4-10.2) mg/dL Total Bilirubin (0.2-1.3) mg/dL AST (17-59) U/L ALT (0-50) U/L Alkaline Phosphatase (38-126) U/L Troponin I 0.053 H* (0.000-0.034) ng/mL NT-Pro-B Natriuret Pep (<300) pg/mL Serum Total Protein (6.3-8.2) g/dL Albumin (3.5-5.0) g/dL Triglycerides 41 (30-150) mg/dL Cholesterol 122 (50-200) mg/dL LDL Cholesterol 45 (30-100) mg/dL HDL Cholesterol 60 (40-60) mg/dL Heart Disease Risk Ratio 2.0 TSH 3rd Generation 2.280 (0.47-4.68) mIU/L Influenza Type A Ag (NEGATIVE) Influenza Type B Ag (NEGATIVE) RSV (PCR) (NEGATIVE) SARS-CoV-2 (PCR) (NEGATIVE) Slides for Path Review 03/25/23 03/25/23 03/25/23 Range/Units 03:35 03:35 03:35 WBC 11.9 H (4.0-10.5) x10^3/uL RBC 3.24 L (4.1-5.6) x10^6/uL Hgb 8.8 L (12.5-18.0) g/dL Hct 27.0 L (42-50) % MCV 83.3 (78-100) fL MCH 27.2 (26-32) pg MCHC 32.6 (32-36) g/dL RDW 17.1 H (11.5-14.0) % Plt Count 289 (150-450) x10^3/uL MPV 10.8 (7.5-11.0) fL Gran % 79.5 H (36.0-66.0) % Immature Gran % (Auto) 0.7 H (0.00-0.4) % Nucleat RBC Rel Count 0.0 (0.00-0.1) % Eos # (Auto) 0.05 (0-0.5) x10^3/uL Immature Gran # (Auto) 0.08 H (0.00-0.03) x10^3u/L Absolute Lymphs (auto) 0.37 L (1.0-4.6) x10^3/uL Absolute Monos (auto) 1.90 H (0.0-1.3) x10^3/uL Absolute Nucleated RBC 0.00 (0.00-0.01) x10^3u/L Lymphocytes % 3.1 L (24.0-44.0) % Monocytes % 16.0 H (0.0-12.0) % Eosinophils % 0.4 (0.00-5.0) % Basophils % 0.3 (0.0-0.4) % Absolute Granulocytes 9.47 H (1.4-6.9) x10^3/uL Basophils # 0.04 (0-0.4) x10^3/uL PT (9.4-12.5) SECONDS INR (0.8-3.0) APTT (25.1-36.5) SECONDS D-Dimer (0.0-0.50) mg/L Sodium 133 L (137-145) mmol/L Potassium 4.0 (3.5-5.1) mmol/L Chloride 101 (98-107) mmol/L Carbon Dioxide 27 (22-30) mmol/L Anion Gap 9.3 (5-15) MEQ/L BUN 12 (9-20) mg/dL Creatinine 0.54 L (0.66-1.25) mg/dL Estimated GFR 97.7 ML/MIN Glucose 83 (74-106) mg/dL Hemoglobin A1c (4.5-6.0) % Lactic Acid (0.4-2.0) Calcium 8.8 (8.4-10.2) mg/dL Total Bilirubin (0.2-1.3) mg/dL AST (17-59) U/L ALT (0-50) U/L Alkaline Phosphatase (38-126) U/L Troponin I 0.064 H* (0.000-0.034) ng/mL NT-Pro-B Natriuret Pep (<300) pg/mL Serum Total Protein (6.3-8.2) g/dL Albumin (3.5-5.0) g/dL Triglycerides (30-150) mg/dL Cholesterol (50-200) mg/dL LDL Cholesterol (30-100) mg/dL HDL Cholesterol (40-60) mg/dL Heart Disease Risk Ratio TSH 3rd Generation (0.47-4.68) mIU/L Influenza Type A Ag (NEGATIVE) Influenza Type B Ag (NEGATIVE) RSV (PCR) (NEGATIVE) SARS-CoV-2 (PCR) (NEGATIVE) Slides for Path Review YES Radiology Exams: Radiology Procedures Category Date Time Status CHEST 1 VIEW (PORTABLE) Stat Exams 03/24/23 15:41 Completed CHEST WITH CONTRAST [CT] Stat Exams 03/24/23 17:59 Taken Assessment/Plan (1) Pneumonia Current Visit: Yes Status: Acute Assessment & Plan: -Supplemental o2 with spo2 goal >92% -RT eval -IS -Nebs/inh pRN -Rocephin/azithromycin continued Code(s): J18.9 - PNEUMONIA, UNSPECIFIED ORGANISM (2) COPD exacerbation Current Visit: Yes Status: Acute Assessment & Plan: -see pneumonia Code(s): J44.1 - CHRONIC OBSTRUCTIVE PULMONARY DISEASE W (ACUTE) EXACERBATION (3) Cough Current Visit: Yes Status: Acute Assessment & Plan: -supportive care, add kamryn padilla Code(s): R05.9 - COUGH, UNSPECIFIED (4) Elevated troponin Current Visit: Yes Status: Acute Assessment & Plan: -Most likely secondary to pneumonia -lipid panel unremarkable -Repeat trops and ekg this morning -tsh wnl -BNP 2730 -Cardiology consult Code(s): R79.89 - OTHER SPECIFIED ABNORMAL FINDINGS OF BLOOD CHEMISTRY (5) Anemia Current Visit: Yes Status: Acute Assessment & Plan: -Hgb at 8.8, will add iron studies Code(s): D64.9 - ANEMIA, UNSPECIFIED
[2023-03-25] MEDS: solu-MEDROL 40 MG, Sterile H2O 10 ml 1 ML IV SCH (06:08)
--- NOTE | 2023-03-25 09:00 | XRAY ---
Indication: Dyspnea, cough, and fatigue. Pulmonary embolus. Multiple contiguous axial images obtained through the chest using 80 cc Isovue 370 contrast and PE protocol. Comparison: None Good opacification of the pulmonary arteries to include the lobar and segmental branches. No pulmonary embolus. Heart not enlarged with scattered coronary calcifications. Aorta moderately arteriosclerotic without aneurysm/dissection. Tiny left hilar calcified nodes. No pathologic mediastinal/hilar lymphadenopathy. Mild fluid leveling mid to distal esophagus presumed from reflux. Lungs demonstrate moderate left lower lobe and lesser degree minimal lingula consolidating airspace disease with small effusion. Remaining lungs demonstrates moderate diffuse pulmonary emphysema and small left lower lobe calcified granuloma. Bony thorax intact with osteopenia and mild degenerative changes throughout the spine. Limited upper abdomen demonstrate bilateral adrenal hypertrophy and a few tiny splenic calcific granulomas.. Impression: 1. Negative pulmonary embolus. 2. Left lower lobe and lesser degree lingula consolidating airspace disease with small effusion. Rule out aspiration pneumonia. 3. Fluid leveling mid to distal esophagus presumed from GERD. 4. Chronic findings including pulmonary emphysema, arteriosclerotic disease, bilateral adrenal hypertrophy, chronic bony findings, and old granulomatous disease.
[2023-03-25] MEDS ORDERED: Zithromax 500 MG/ 250 ML NaCl Premix 500 MG/250 ML IVPB IV SCH (10:00)
[2023-03-25] MEDS: Pepcid 20 MG PO SCH (10:26)
[2023-03-25] MEDS: ROCEPHIN 1 GM / 100 ML NaCl 1 GM/100 ML IVPB IV SCH (10:27)
[2023-03-25] MEDS: ENOXAPARIN SODIUM SQ SCH (10:27)
[2023-03-25] MEDS: Mucinex 600MG ER Tabs PO SCH (10:27)
[2023-03-25] MEDS: Acidophilus TABLET PO SCH (10:27)
[2023-03-25 13:37] LABS: Iron 17 ug/dL (49-181); Iron Saturation 6 % (20-39); TIBC 310 ug/dL (261-497)
[2023-03-25 14:22] LABS: Ferritin 41.8 ng/mL (17.9-464)
--- NOTE | 2023-03-25 14:47 | XRAY ---
Indication: Dysphagia. Modified barium swallow study performed by the department of speech therapy with fluoroscopic assistance provided. Patient ingested multiple consistencies of liquids and solids. Full report and recommendations will be reported separately. 1 minute 40 seconds fluoroscopy used.
[2023-03-25] MEDS ORDERED: INJECTAFER 750 MG IV ONE (15:46)
--- NOTE | 2023-03-25 16:53 | XRAY ---
Indication: Bilateral claudication. Two-dimensional sonogram and color Doppler imaging major arteries left and right leg performed. Comparison: None Examination right leg demonstrates minimal/mild scattered arteriosclerotic disease in the common femoral, deep femoral, superficial femoral, popliteal, posterior tibial, dorsal pedal arteries. Arterial waveforms are multiphasic throughout right leg. Right arm brachial pressure is 130. Right ankle pressure is 157. Ankle brachial index is 1.1, normal. Examination left leg demonstrates minimal/mild scattered arteriosclerotic disease in the common femoral, deep femoral, superficial femoral, popliteal, posterior tibial, and dorsal pedal arteries. Arterial waveforms are multiphasic throughout left leg. Left arm brachial pressure is 148. Left ankle pressure is 141. Ankle brachial index is 0.95, normal. 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 Left and right ABIs are normal.
[2023-03-25] MEDS: Cozaar 50 MG PO SCH (17:02)
[2023-03-25] MEDS: INJECTAFER 750 MG 750 MG in Sodium Chloride 0.9% 250 ML 250 ML IV SCH (17:04)
[2023-03-25] MEDS: CHLORASEPTIC SPRAY 180 ML PO PRN (18:20)
[2023-03-25] MEDS: Zithromax 500 MG/ 250 ML NaCl Premix 500 MG/250 ML IVPB IV SCH (22:13)
--- NOTE | 2023-03-26 05:18 | PCM.NOTE ---
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 He also had a cough which improved and reports chronic coryza. CXR showing COPD with LLL pneumonia. EKG- RATE (Sinus tachycardia/rate 114/normal QT-QTc/LVH with strain pattern/mildly poor R wave progression/nonspecific ST wave changes/artifact present/interpreted contemporaneously per ER physician.(TA of the chest/no PE/left lower lobe and lingular pneumonia with small effusion per radiologist. Patient admitted with COPD exacerbation secondary to pneumonia. Iron deficiency anemia noted on labwork with iron sat at 7%. Patient received one dose of injectofer, advised follow up with hematology. Cardiology (Dr. Ledesma) consulted for elevated troponins with recs to follow up for stress test as OP, ASA changed to 81mg daily, and losartan added. 03/26/23: OBJECTIVE DATA Vital Signs: Vital Signs - 24 hr Temp Pulse Resp BP Pulse Ox 03/26/23 01:32 84 16 96 03/25/23 23:49 98.6 F 84 16 134/61 95 03/25/23 20:00 98.4 F 101 H 24 125/60 100 03/25/23 19:01 95 03/25/23 16:00 98.4 F 100 H 20 148/71 92 L 03/25/23 13:52 100 H 21 91 L 03/25/23 12:00 98.6 F 102 H 16 155/71 97 03/25/23 08:00 98.3 F 68 20 165/67 93 L 03/25/23 07:08 97 H 23 100 Pain Assessment - Last Documented Pain Intensity 6 Pain Scale Used 0-10 Pain Scale Intake and Output: Intake & Output 03/23/23 03/24/23 03/25/23 03/26/23 11:59 11:59 11:59 11:59 Intake Total 240 960 Balance 240 960 Weight 52.6 kg Lab Results: Lab Results-Last 24 Hours 03/25/23 03/25/23 03/25/23 Range/Units 05:40 05:40 13:17 Iron 17 L (49-181) ug/dL TIBC 310 (261-497) ug/dL Iron Saturation 6 L (20-39) % Ferritin 41.8 (17.9-464) ng/mL Troponin I 0.042 H* (0.000-0.034) ng/mL Vitamin B12 448 (239-931) pg/mL Radiology Exams: Radiology Procedures Category Date Time Status ARTERIAL BILAT LOWER EXTREMITY [US] Routine Exams 03/25/23 15:51 Completed CHEST 1 VIEW (PORTABLE) Stat Exams 03/24/23 15:41 Completed CHEST WITH CONTRAST [CT] Stat Exams 03/24/23 17:59 Completed MODIFIED BARIUM SWALLOW (RAD) [MODIFIED BARIUM SWALLOW Exams 03/25/23 11:23 Completed EXAM] Routine Multi-Disciplinary Progress Notes: Multi-Disciplinary Progress Notes 03/25/23 18:46 Mod Barium Swallow Note by Kenrick#[id number] Modified Barium Swallow Study ST Modified Barium Swallow Study Start: 03/25/23 17:57 Freq: Status: Active Protocol: Document 03/25/23 17:57 BM (Rec: 03/25/23 18:41 BM [id number]) E-Sign 03/25/23 17:57 BM Modified Barium Swallow Reason for Assessment Primary Diagnosis J18.9 - PNEUMONIA, UNSPECIFIED ORGANISM Primary Diagnosis (cont) J44.1 - CHRONIC OBSTRUCTIVE PULMONARY DISEASE W (ACUTE) EXACERBATION Treatment Diagnosis #1 R13.12 - DYSPHAGIA, OROPHARYNGEAL PHASE Reason for Assessment PATIENT REFERRED FOR MBS STUDY BY ST FOLLOWING PHYSICIAN ORDER FOR ST EVALUATION FOR POSSIBLE ASPIRATION. Onset Date 03/24/23 Date of Evaluation/SOC 03/25/23 Pain Assessment Do you have pain on swallowing No Non-verbal signs & symptoms of pain No Modified Barium Swallow View This evaluation was completed to assess the functioning of the oral and pharyngeal phases of swallowing and to determine if the patient is aspirating or at risk for aspiration. Modified Barium Swallow View Lateral View Consistencies Assessed Barium trials included: Thin Liquid via Spoon,Thin Liquid via Cup,Thin Liquid via Straw,Combes Liquid via Spoon ,Thin Honey Liquid via spoon, Honey Liquid via Spoon,Pudding Liquid via spoon,Pureed Food, Paste on a Cookie Aspiration Risk Aspiration Observed No Amount of Aspiration Observed None Patient considered at risk of aspiration Yes during oral intake Patient is at risk for aspiration After the swallow,Before the swallow Severity of Aspiration Risk Moderate Penetration into Laryngeal Vestibule No Penetration occured with None Reason for aspirational risk: PATIENT AT RISK FOR ASPIRATION BEFORE THE SWALLOW DUE TO DECREASED ORAL BOLUS CONTROL RESULTING IN PREMATURE SPILLAGE TO THE VALLECULAE. PATIENT AT RISK FOR ASPIRATION AFTER THE SWALLOW DUE TO PARTIAL BOLUS REMAINING IN PHARYNX BELOW THE LARYNGEAL VESTIBULE OPENING AFTER SWALLOW COMPLETION. WHICH THEN MOVES ANTERIORLY PATIENT TALKS. 8-Point Penetration-Aspiration Scale (Rosenbek) 1.Material does not enter airway Yes Consistency Thin,Combes Thick,Thin Honey, Honey,Pudding,Pureed,Paste on a cookie Method of presentation Teaspoon,Cup,Straw Residue/Retention Residue Observed Valleculae Right,Valleculae Left,Pyriform Sinus Right, Pyriform Sinus Left Esophageal Function Slowed Clearing Other WITH INCREASING VISCOSITY THICKNESS, PATIENT DEMONSTRATED INCREASING RESIDUE REMAINING IN PHARYNX AND PHARYNGEAL RECESSES BELOW THE LARYNGEAL VESTIBULE OPENING. UNABLE TO DETERMINE EFFECTIVENESS OF CRICOPHARYNGEAL OPENING DUE TO PATIENT MOVEMENT AND TALKING THROUGHOUT MBS STUDY. Assessment of Swallow Phases Oral Phase Labial Closure No Impairment (WFL) Bolus Formation Yes Bolus Control Pooling L/R No Impairment (WFL) Bolus Control under Tongue No Impairment (WFL) Bolus Control Scattered Loss No Impairment (WFL) Mastication Effectiveness Mild Impairment A/P Bolus Propulsion Moderate Impairment Premature Spillage into: Valleculae A/P Lingual Propulsion Delay Mild Impairment A/P Lingual Propulsion Delay (sec) 2 Lingual Movement Moderate Impairment Residue Clearing/Sensitivity No Impairment (WFL) Aspiration No Swallow Initiation Delay Mild Impairment Swallow Delay Time (sec) 3 Other Oral Phase Observations PATIENT WITH MINIMAL AMOUNT OF TEETH PRESENT, WHICH INTERFERES WITH MASTICATION EFFECTIVENESS. PATIENT DEMONSTRATED LINGUAL PUMPING TO ASSIST WITH A/P BOLUS PROPULSION. PATIENT WITH PREMATURE SPILLAGE INTO VALLECULAE DUE TO DELAY SWALLOW INITIATION AND DELAY IN A/P BOLUS PROPULSION. Pharyngeal Phase Base of Tongue Retraction No Impairment (WFL) Epiglottic Coverage No Impairment (WFL) Laryngeal Elevation No Impairment (WFL) Reduced Anterior Laryngeal Movement No Laryngeal Closure No Impairment (WFL) Vallecular Retention Clearing Mild Impairment Pharyn. Wall Residue Clearing No Impairment (WFL) Pyriform Sinus Retention Mild Impairment Penetration No Aspiration No Cricopharyngeal Dysfunction Yes Cough None Other Pharyngeal Phase Observation WITH THIN, NECTAR THICK, AND THIN HONEY CONSISTENCY BARIUM, PATIENT WITH FUNCTIONAL PHARYNGEAL PHASE OF SWALLOW. HOWEVER, WITH INCREASING VISCOSITY AND TEXTURE, PATIENT DEMONSTRATED INCREASING DIFFICULTY WITH ENTIRE BOLUS CLEARING PAST CRICOPHARYNGEAL WITH RESIDUE AND PARTIAL BOLUS REMAINING BELOW OPENING OF LARYNGEAL VESTIBULE. THIS REQUIRED MULTIPLE SWALLOWS OF WATER TO PARTIALLY CLEAR. ALSO, PATIENT DEMONSTRATED DECREASED AWARENESS AND/OR SENSITIVITY TO RESIDUE IN PHARYNX HE BEGAN TALKING IMMEDIATELY AFTER INITIAL SWALLOW. Clinical Interpretation Clinical Interpretation PATIENT WITH MODERATE OROPHARYNGEAL DYSPHAGIA WITHOUT ASPIRATION. Speech Therapy Teaching Record Teaching Summary Results/Recommendations Learning Preferences Discussion Barriers to Learning None Readiness for Learning Accepting Teaching Methods Discussion Teaching Recipient Patient Response to Teaching Verbalize understanding ST Recommendations Diet Consistency Soft Liquid Consistency Regular Thin Safe Swallow Compensatory Strategies Compensatory Strategies Small bites and drinks,Dry swallows,Alternate solids/ liquids Medication Instructions Per Patient Preference Speech Therapist Treatment Program Oral Motor Exercises to improve strength Laryngeal /ROM Therapeutic Feeds Teach Compensatory Techniques Additional Comments: PATIENT WOULD BENEFIT FROM SKILLED ST INTERVENTION FOR SAFE SWALLOW COMPENSATORY STRATEGY USE. Signatures Speech Therapist Signature ANDREA, MS, CCC/VAT SKIMMER Physician Signature DR Demetrio BEAVERS, RADIOLOGIST Initialized on 03/25/23 18:46 - END OF NOTE 03/25/23 14:26 Case Management Note by Valarie Hernandez [facility]. THEY WILL NEED NOTIFIED AT TIME OF DC AT [phone]. THEY WILL NEED FAXED THE DC INSTRUCTIONS, DC MED LIST AND DC SUMMARY TO [phone] Initialized on 03/25/23 14:26 - END OF NOTE 03/25/23 14:15 Case Management Note by Valarie Hernandez S/W JADA AT [facility]- PATIENT'S OXYGEN IS FOR 2L/NC Initialized on 03/25/23 14:15 - END OF NOTE Assessment/Plan (1) Pneumonia Current Visit: Yes Status: Acute Assessment & Plan: -Supplemental o2 with spo2 goal >92% -RT eval -IS -Nebs/inh pRN -Rocephin/azithromycin continued Code(s): J18.9 - PNEUMONIA, UNSPECIFIED ORGANISM (2) COPD exacerbation Current Visit: Yes Status: Acute Assessment & Plan: -see pneumonia Code(s): J44.1 - CHRONIC OBSTRUCTIVE PULMONARY DISEASE W (ACUTE) EXACERBATION (3) Cough Current Visit: Yes Status: Acute Assessment & Plan: -supportive care, add kamryn padilla Code(s): R05.9 - COUGH, UNSPECIFIED (4) Elevated troponin Current Visit: Yes Status: Acute Assessment & Plan: -Most likely secondary to pneumonia -lipid panel unremarkable -Repeat trops and ekg this morning -tsh wnl -BNP 2730 -Cardiology consult 03/26: -Cardiology (Dr. Ledesma) consulted, appreciate recs, patient to follow up in one week for stress test, aspirin changed to 81mg daily, and losartan added Code(s): R79.89 - OTHER SPECIFIED ABNORMAL FINDINGS OF BLOOD CHEMISTRY (5) Anemia Current Visit: Yes Status: Acute Assessment & Plan: -Hgb at 8.8, will add iron studies 03/26: -Labs reviewed with iron sat at 7%, patient received a dose of injectofer, advised follow up op with hematology for further treatment/workup. Code(s): J18.9 - PNEUMONIA, UNSPECIFIED ORGANISM (2) COPD exacerbation Current Visit: Yes Status: Acute Code(s): J44.1 - CHRONIC OBSTRUCTIVE PULMONARY DISEASE W (ACUTE) EXACERBATION (3) Cough Current Visit: Yes Status: Acute Code(s): R05.9 - COUGH, UNSPECIFIED (4) Elevated troponin Current Visit: Yes Status: Acute Code(s): R79.89 - OTHER SPECIFIED ABNORMAL FINDINGS OF BLOOD CHEMISTRY (5) Anemia Current Visit: Yes Status: Acute Code(s): D64.9 - ANEMIA, UNSPECIFIED
[2023-03-26 05:47] LABS: Absolute Neutrophil Ct (ANC) 12.69 x10^3/uL (1.4-6.9); BASOPHIL % 0.1 % (0.0-0.4); Basophil (Absolute #) 0.01 x10^3/uL (0-0.4); Eosinophil (Absolute #) 0 x10^3/uL (0-0.5); Hematocrit 29.8 % (42-50); Hemoglobin 9.6 g/dL (12.5-18.0); IMMATURE GRAN # 0.09 x10^3u/L (0.00-0.03); IMMATURE GRAN % 0.7 % (0.00-0.4); Lymphocyte (Absolute #) 0.14 x10^3/uL (1.0-4.6); Mean Cell Volume 81.9 fL (78-100); Mean Corpuscular Hemoglobin 26.4 pg (26-32); Mean Corpuscular Hgb Concent. 32.2 g/dL (32-36); Mean Platelet Volume 10.8 fL (7.5-11.0); Monocytes % 5.1 % (0.0-12.0); Neutrophil % 93.1 % (36.0-66.0); Platelet Count 376 x10^3/uL (150-450); Red Blood Count 3.64 x10^6/uL (4.1-5.6); Red Cell Distribution Width 17.4 % (11.5-14.0); White Blood Count 13.6 x10^3/uL (4.0-10.5)
[2023-03-26 06:13] LABS: ALBUMIN 4.2 g/dL (3.5-5.0); ANION GAP 10.5 MEQ/L (5-15); BILIRUBIN,TOTAL 0.6 mg/dL (0.2-1.3); Calcium 9.5 mg/dL (8.4-10.2); Creatinine 1 0.47 mg/dL (0.66-1.25); EST GLOMERULAR FILTRATION RATE 101.8 ML/MIN; Potassium 3.4 mmol/L (3.5-5.1); Total Protein 7.4 g/dL (6.3-8.2)
[2023-03-26 07:35] LABS: Slide Review 1 YES
[2023-03-26] MEDS: ECOTRIN 81 MG PO SCH (09:08)
[2023-03-26] MEDS: Docusate Sodium 100 MG PO PRN (09:09)
--- NOTE | 2023-03-26 12:04 | PCM.DS ---
Discharge Summary Date of Admission: 03/24/23 21:43 Date of Discharge: 03/26/23 Admitting Physician: RUTHIE BECK MD Consults: Consults on Case 03/24/23 22:50 Case Management SDOH DC Needs Assessment ROUTINE 03/25/23 12:53 Consult Cardiology ROUTINE Primary Care Provider: ELLIOTT GREGORY Allergies Allergies No Known Drug Allergies Allergy (Verified 03/25/23 03:57) Hospital Summary - Hospital Course Hospital Course: is a 87 year old male (with a history of COPD on home oxygen but lost to follow up with only use of prn MDIs from family members) who presented to ED 03/24/23 with complaint of a one month history of increased shortness of breath and dyspnea with exertion worse upon presentation. He also had a cough which improved and reports chronic coryza. CXR showing COPD with LLL pneumonia. EKG- RATE (Sinus tachycardia/rate 114/normal QT-QTc/LVH with strain pattern/mildly poor R wave progression/nonspecific ST wave changes/artifact present/interpreted contemporaneously per ER physician.(CTA of the chest/no PE/left lower lobe and lingular pneumonia with small effusion per radiologist. Patient admitted with COPD exacerbation secondary to pneumonia. There was some concern for aspiration. Modified barium swallow performed noting dysphagia without aspiration. ST with recs for soft diet. Cardiology consulted due to elevated troponins. Dr Ledesma saw patient with rec for ASA to change to 81mg, start losartan, and cardiology follow up in one week for stress test. Arterial duplex ordered and negative for stenosis and obstruction. Patient also found with iron deficiency anemia with iron sat at 7%, he has been given one dose of injectafer. Plan to follow up with hematology (Dr. Osorio) for further evaluation. Patient to follow up with Dr. Gregory (pulmonology). He has requested a nicotine patch for smoking cessation. Dyspnea and cough have improved. Patient at baseline oxygen of 2L. Will dismiss him home with cefpodoxime, prednisone, symbicort, losartan, and nicotine patch. Discharge Note New Diagnosis:Pneumonia New Medications:cefpodoxime, prednisone, symbicort, losartan, and nicotine patch. Follow Up: pcp/pulmonology/cards/hematology Latest Assessment & Plan (1) Pneumonia Current Visit: Yes Status: Acute Assessment & Plan: -Supplemental o2 with spo2 goal >92% -RT eval -IS -Nebs/inh pRN -Rocephin/azithromycin continued Code(s): J18.9 - PNEUMONIA, UNSPECIFIED ORGANISM (2) COPD exacerbation Current Visit: Yes Status: Acute Assessment & Plan: -see pneumonia Code(s): J44.1 - CHRONIC OBSTRUCTIVE PULMONARY DISEASE W (ACUTE) EXACERBATION (3) Cough Current Visit: Yes Status: Acute Assessment & Plan: -supportive care, add tessalon nuzhates Code(s): R05.9 - COUGH, UNSPECIFIED (4) Elevated troponin Current Visit: Yes Status: Acute Assessment & Plan: -Most likely secondary to pneumonia -lipid panel unremarkable -Repeat trops and ekg this morning -tsh wnl -BNP 2730 -Cardiology consult Code(s): R79.89 - OTHER SPECIFIED ABNORMAL FINDINGS OF BLOOD CHEMISTRY (5) Anemia Current Visit: Yes Status: Acute Assessment & Plan: -Hgb at 8.8, will add iron studies Code(s): D64.9 - ANEMIA, UNSPECIFIED I spent 35 minutes [id number] with the patient on the day of discharge performing discharge exam, discussing hospital stay and discharge instructions with patient and caregivers, preparation of discharge records, prescriptions & referral forms and addressing any questions/concerns the patient had as document ed above. - Vitals & Intake/Output Vital Signs: Vital Signs Temperature 98.2 F 03/26/23 07:33 Pulse Rate 74 03/26/23 07:33 Respiratory Rate 18 03/26/23 07:33 Blood Pressure 159/74 03/26/23 07:33 O2 Sat by Pulse Oximetry 93 L 03/26/23 07:33 Intake & Output: Intake & Output 03/23/23 03/24/23 03/25/23 03/26/23 11:59 11:59 11:59 11:59 Intake Total 240 2080 Balance 240 2080 Weight 52.6 kg - Lab Result Diagrams: 03/26/23 05:33 03/26/23 05:33 Lab Results-Last 24 Hrs: Lab Results-Last 24 Hours 03/25/23 03/25/23 03/25/23 Range/Units 05:40 05:40 13:17 WBC (4.0-10.5) x10^3/uL RBC (4.1-5.6) x10^6/uL Hgb (12.5-18.0) g/dL Hct (42-50) % MCV (78-100) fL MCH (26-32) pg MCHC (32-36) g/dL RDW (11.5-14.0) % Plt Count (150-450) x10^3/uL MPV (7.5-11.0) fL Gran % (36.0-66.0) % Immature Gran % (Auto) (0.00-0.4) % Nucleat RBC Rel Count (0.00-0.1) % Eos # (Auto) (0-0.5) x10^3/uL Immature Gran # (Auto) (0.00-0.03) x10^3u/L Absolute Lymphs (auto) (1.0-4.6) x10^3/uL Absolute Monos (auto) (0.0-1.3) x10^3/uL Absolute Nucleated RBC (0.00-0.01) x10^3u/L Lymphocytes % (24.0-44.0) % Monocytes % (0.0-12.0) % Eosinophils % (0.00-5.0) % Basophils % (0.0-0.4) % Absolute Granulocytes (1.4-6.9) x10^3/uL Basophils # (0-0.4) x10^3/uL Sodium (137-145) mmol/L Potassium (3.5-5.1) mmol/L Chloride (98-107) mmol/L Carbon Dioxide (22-30) mmol/L Anion Gap (5-15) MEQ/L BUN (9-20) mg/dL Creatinine (0.66-1.25) mg/dL Estimated GFR ML/MIN Glucose (74-106) mg/dL Calcium (8.4-10.2) mg/dL Iron 17 L (49-181) ug/dL TIBC 310 (261-497) ug/dL Iron Saturation 6 L (20-39) % Ferritin 41.8 (17.9-464) ng/mL Total Bilirubin (0.2-1.3) mg/dL AST (17-59) U/L ALT (0-50) U/L Alkaline Phosphatase (38-126) U/L Troponin I 0.042 H* (0.000-0.034) ng/mL Serum Total Protein (6.3-8.2) g/dL Albumin (3.5-5.0) g/dL Vitamin B12 448 (239-931) pg/mL Slides for Path Review 03/26/23 03/26/23 Range/Units 05:33 05:33 WBC 13.6 H (4.0-10.5) x10^3/uL RBC 3.64 L (4.1-5.6) x10^6/uL Hgb 9.6 L (12.5-18.0) g/dL Hct 29.8 L (42-50) % MCV 81.9 (78-100) fL MCH 26.4 (26-32) pg MCHC 32.2 (32-36) g/dL RDW 17.4 H (11.5-14.0) % Plt Count 376 (150-450) x10^3/uL MPV 10.8 (7.5-11.0) fL Gran % 93.1 H (36.0-66.0) % Immature Gran % (Auto) 0.7 H (0.00-0.4) % Nucleat RBC Rel Count 0.0 (0.00-0.1) % Eos # (Auto) 0 (0-0.5) x10^3/uL Immature Gran # (Auto) 0.09 H (0.00-0.03) x10^3u/L Absolute Lymphs (auto) 0.14 L (1.0-4.6) x10^3/uL Absolute Monos (auto) 0.70 (0.0-1.3) x10^3/uL Absolute Nucleated RBC 0.00 (0.00-0.01) x10^3u/L Lymphocytes % 1.0 L (24.0-44.0) % Monocytes % 5.1 (0.0-12.0) % Eosinophils % 0.0 (0.00-5.0) % Basophils % 0.1 (0.0-0.4) % Absolute Granulocytes 12.69 H (1.4-6.9) x10^3/uL Basophils # 0.01 (0-0.4) x10^3/uL Sodium 134 L (137-145) mmol/L Potassium 3.4 L (3.5-5.1) mmol/L Chloride 100 (98-107) mmol/L Carbon Dioxide 27 (22-30) mmol/L Anion Gap 10.5 (5-15) MEQ/L BUN 17 (9-20) mg/dL Creatinine 0.47 L (0.66-1.25) mg/dL Estimated GFR 101.8 ML/MIN Glucose 141 H (74-106) mg/dL Calcium 9.5 (8.4-10.2) mg/dL Iron (49-181) ug/dL TIBC (261-497) ug/dL Iron Saturation (20-39) % Ferritin (17.9-464) ng/mL Total Bilirubin 0.60 (0.2-1.3) mg/dL AST 26 (17-59) U/L ALT 23 (0-50) U/L Alkaline Phosphatase 67 (38-126) U/L Troponin I (0.000-0.034) ng/mL Serum Total Protein 7.4 (6.3-8.2) g/dL Albumin 4.2 (3.5-5.0) g/dL Vitamin B12 (239-931) pg/mL Slides for Path Review YES Micro Results-Entire Visit: Microbiology 03/24/23 17:26 Blood Culture - Preliminary Blood 03/24/23 17:03 Blood Culture - Preliminary Blood - Radiology Exams Ordered Rad Exams-Entire Visit: Radiology Procedures Category Date Time Status ARTERIAL BILAT LOWER EXTREMITY [US] Routine Exams 03/25/23 15:51 Completed CHEST 1 VIEW (PORTABLE) Stat Exams 03/24/23 15:41 Completed CHEST WITH CONTRAST [CT] Stat Exams 03/24/23 17:59 Completed MODIFIED BARIUM SWALLOW (RAD) [MODIFIED BARIUM SWALLOW Exams 03/25/23 11:23 Completed EXAM] Routine - Procedures and Test Procedures and Tests throughout Hospitalization: Therapy Orders & Screens 03/24/23 15:50 Respiratory Therapy Assessment DAILY Comment: 03/24/23 20:00 Oxygen Nasal Cannula 2 lpm Comment: 03/24/23 22:17 RT Screen per Nursing Assess ONCE Comment: Protocol Order Physician Instructions: Greater than 3 points order RT Admission Screen Reason For Exam: Triggered on Admission Diagnosis: PNEUMONIA, ELEVATED TROPONINS Diagnosis: PNEUMONIA, ELEVATED TROPONINS Pneumonia: Yes Home O2: Yes: 2L Asthma: No CHF: No Home CPAP/BIPAP: No Home Nebs/MDI: No Total Points: 8 Smoking Cessation Education ONCE Comment: Diagnosis: PNEUMONIA, ELEVATED TROPONINS Smoking Status: Current every day smoker How long have you smoked: 79 YEARS Have you smoked in the past 12 months: Yes Approximately how many cigarettes per day: LESS THEN A PACK Do you dip or chew tobacco: No 03/24/23 22:45 EKG REPEAT IN AM Comment: Diagnosis: PNEUMONIA, ELEVATED TROPONINS Respiratory Therapy Consult ONCE Comment: Reason For Exam: Diagnosis: PNEUMONIA, ELEVATED TROPONINS 03/24/23 22:48 ST Eval & Treat (MD Order) ROUTINE Comment: Physician Instructions: Reason For Exam: Evaluate: Yes Treat: Yes Reason for Eval: RULE OUT OCCULT DYSPHAGIA. Lower lobe pneumonia Diagnosis: PNEUMONIA, ELEVATED TROPONINS 03/25/23 10:54 RT Miscellaneous Order ROUTINE Comment: Physician Instructions: Reason For Exam: HYPOXIA IN THE 70'S PER EMS Diagnosis: PNEUMONIA, ELEVATED TROPONINS 03/25/23 12:54 EKG ROUTINE Comment: Diagnosis: PNEUMONIA, ELEVATED TROPONINS Discharge Exam General Appearance: no apparent distress Neurologic Exam: alert, oriented x 3, cooperative Eye Exam: PERRL Ears, Nose, Throat Exam: normal ENT inspection Neck Exam: normal inspection Respiratory Exam: diminished breath sounds Cardiovascular Exam: regular rate/rhythm, normal heart sounds Gastrointestinal/Abdomen Exam: soft, normal bowel sounds Male Genitalia Exam: deferred Rectal Exam: deferred Back Exam: normal inspection Extremity Exam: normal inspection Skin Exam: normal color Final Diagnosis/Problem List - Final Discharge Diagnosis/Problem (1) Pneumonia Current Visit: Yes Status: Acute Code(s): J18.9 - PNEUMONIA, UNSPECIFIED ORGANISM (2) COPD exacerbation Current Visit: Yes Status: Chronic Code(s): J44.1 - CHRONIC OBSTRUCTIVE PULMONARY DISEASE W (ACUTE) EXACERBATION (3) Cough Current Visit: Yes Status: Resolved Code(s): R05.9 - COUGH, UNSPECIFIED (4) Elevated troponin Current Visit: Yes Status: Chronic Code(s): R79.89 - OTHER SPECIFIED ABNORMAL FINDINGS OF BLOOD CHEMISTRY (5) Anemia Current Visit: Yes Status: Chronic Code(s): D64.9 - ANEMIA, UNSPECIFIED - Discharge Disposition: Home, Self-Care Condition: Stable Prescriptions: New Lactobacillus Acidophilus [Acidophilus TABLET] 1 tab PO DAILY tablet Phenol/Sodium Phenolate [Chloraseptic [place] 180 ml] 180 ml PO PRN PRN PRN Reason: Sore Throat Losartan Potassium 50 mg [Cozaar 50 MG] 25 mg PO DAILY 30 Days #30 tablet Prednisone 20 mg [Deltasone 20 mg] 20 mg PO BID 5 Days #10 tablet Aspirin EC 81 mg [Ecotrin 81 mg] 81 mg PO DAILY 30 Days #30 tablet Guaifenesin 600 mg ER [Mucinex 600MG ER Tabs] 1,200 mg PO BID 7 Days #14 tablet Nicotine 21 mg [Nicoderm CQ 21 MG] 21 mg TOP Q24H 42 Days #42 patch Famotidine 20 mg [Pepcid 20 MG] 20 mg PO BID 30 Days #60 tablet Cefpodoxime Proxetil 200 mg [Vantin 200 mg] 200 mg PO BID 7 Days #14 tablet Budesonide/Formoterol Fumarate [Budesonide-Formoterol 160-4.5] 2 puff IH BID PRN 30 Days #1 inhaler PRN Reason: Shortness Of Breath/Wheezing Albuterol/Ipratropium 3ml Neb* [DUONEB 0.5-3 MG/3 ml Neb] 3 ml IH Q6HPRN PRN 30 Days #120 amp PRN Reason: Shortness Of Breath/Wheezing Additional Instructions: [facility] HAS BEEN SET UP FOR YOU. THEY WILL CALL YOU TO ARRANGE A TIME TO SOME SEE YOU. THEIR PHONE NUMBER IS [phone] IF YOU NEED ANYTHING BEFORE THEIR FIRST VISIT. Follow up with: Ismael Ledesma MD [CONSULTING PHYSICIAN] - PUJA OSORIO MD [NON-STAFF PHY W/O PRIVILEGES] - 1 Week BARBARA DOZIER MD [ACTIVE STAFF] - 1 Week
[2023-03-26 12:17] VITALS: BP 152/63; PULSE 108; RESP 21; TEMP 98; O2SAT 90
== END 2023-03-26 14:04 | disposition home or self-care (01) ==
LOC: ED 15:36 → MED SURG 21:43
PROVIDERS: ADMIT Internal Medicine; ATTEND Internal Medicine
DX: J18.9 Pneumonia, unspecified organism (principal); J44.1 Chronic obstructive pulmonary disease with (acute) exacerbation; R05.9 Cough, unspecified; R79.89 Other specified abnormal findings of blood chemistry; D64.9 Anemia, unspecified; F17.200 Nicotine dependence, unspecified, uncomplicated; I73.9 Peripheral vascular disease, unspecified; Z99.81 Dependence on supplemental oxygen; Z20.828 Contact with and (suspected) exposure to other viral communicable diseases
CPT/HCPCS: 0241U; 36000; 36415; 71045; 71260; 74230; 80048; 80053; 80061; 82607; 82728; 83036; 83540; 83550; 83605; 83721; 83880; 84443; 84484; 85025; 85379; 85610; 85730; 87040; 92611; 93005; 93268; 93925; 94640; 94762; 99285; G0378; Q3014; J0456; J0696; J1439; J1650; J2920; A9270-GY

== ENCOUNTER 2023-04-07 10:46 | Observation (INO) | payer MEDICARE ==
[2023-04-07] MEDS ORDERED: BABY ASPIRIN 81 MG CHEW ONE (11:08)
[2023-04-07] MEDS ORDERED: Nitrostat 0.4 MG (ED) SL ONE (11:09)
[2023-04-07] MEDS: Sodium Chloride 0.9% 1000 ML 1,000 ML IV SCH (11:10)
[2023-04-07] MEDS: Nitrostat 0.4 MG (ED) SL ONE (11:10)
[2023-04-07] MEDS: BABY ASPIRIN 81 MG CHEW PO ONE (11:13)
[2023-04-07 11:15] LABS: Absolute Neutrophil Ct (ANC) 10.83 x10^3/uL (1.4-6.9); BASOPHIL % 0.1 % (0.0-0.4); Basophil (Absolute #) 0.02 x10^3/uL (0-0.4); Eosinophil % 0.2 % (0.00-5.0); Eosinophil (Absolute #) 0.03 x10^3/uL (0-0.5); Hematocrit 30.2 % (42-50); Hemoglobin 9.5 g/dL (12.5-18.0); IMMATURE GRAN # 0.24 x10^3u/L (0.00-0.03); IMMATURE GRAN % 1.8 % (0.00-0.4); Lymphocyte (Absolute #) 0.48 x10^3/uL (1.0-4.6); Lymphocytes % 3.5 % (24.0-44.0); Mean Cell Volume 93.2 fL (78-100); Mean Corpuscular Hemoglobin 29.3 pg (26-32); Mean Corpuscular Hgb Concent. 31.5 g/dL (32-36); Mean Platelet Volume 10.7 fL (7.5-11.0); Monocyte (Absolute #) 1.98 x10^3/uL (0.0-1.3); Monocytes % 14.6 % (0.0-12.0); Neutrophil % 79.8 % (36.0-66.0); Platelet Count 325 x10^3/uL (150-450); Red Blood Count 3.24 x10^6/uL (4.1-5.6); Red Cell Distribution Width 26.7 % (11.5-14.0); White Blood Count 13.6 x10^3/uL (4.0-10.5)
--- NOTE | 2023-04-07 11:28 | XRAY ---
Indication: Chest pain. Comparison: March 24, 2023 Portable chest again demonstrates COPD. Improving previous left lower lobe infiltrate with tiny residual remaining. Remaining heart and lungs unremarkable. Bony thorax intact again with osteopenia, degenerative changes, and scoliosis.
[2023-04-07 11:34] LABS: INR 0.92 (0.8-3.0); PROTIME 10.1 SECONDS (9.4-12.5)
[2023-04-07 11:36] LABS: ALBUMIN 4.3 g/dL (3.5-5.0); ANION GAP 5.7 MEQ/L (5-15); BILIRUBIN,TOTAL 0.4 mg/dL (0.2-1.3); Calcium 8.8 mg/dL (8.4-10.2); Creatinine 1 0.49 mg/dL (0.66-1.25); EST GLOMERULAR FILTRATION RATE 100.6 ML/MIN; Potassium 4.6 mmol/L (3.5-5.1); Total Protein 6.7 g/dL (6.3-8.2)
[2023-04-07 11:39] LABS: D-DIMER QUANTITATIVE 0.8 mg/L (0.0-0.50)
[2023-04-07 11:45] LABS: Slide Review 1 YES
[2023-04-07 12:31] LABS: INFLUENZA A NEGATIVE (NEGATIVE); INFLUENZA B NEGATIVE (NEGATIVE); RESPIRATORY SYNCTIAL VIRUS NEGATIVE (NEGATIVE); SARS-CoV-2 Xpert Express NEGATIVE (NEGATIVE)
--- NOTE | 2023-04-07 12:57 | XRAY ---
Indication: Short of breath. Chest pain. Elevated d-dimer. Multiple contiguous axial images obtained through the chest using 80 cc Isovue 370 contrast and PE protocol. Comparison: March 24, 2023 Good opacification of the pulmonary arteries to include the lobar and segmental branches. No pulmonary embolus. Heart not enlarged again with scattered coronary calcifications. Aorta moderately atherosclerotic without aneurysm/dissection. Stable tiny left hilar calcified nodes. No pathologic mediastinal/hilar lymphadenopathy. Lungs demonstrates clearing previous left lower lobe infiltrate with now minimal left base subsegmental atelectasis/scarring. Remaining lungs again demonstrates pulmonary emphysema and small left lower lobe calcified granuloma. Bony thorax intact again with osteopenia and mild degenerative changes throughout the spine. Limited upper abdomen again demonstrates bilateral adrenal hypertrophy. Impression 1. Continue negative pulmonary embolus compared to ER CT exam 2 weeks ago. 2. Improving left lower lobe infiltrate with now minimal atelectasis/scarring. 3. Again pulmonary emphysema, arteriosclerotic disease, bilateral adrenal hypertrophy, chronic bony findings, and old granulomatous disease.
--- NOTE | 2023-04-07 17:43 | ERPHSYRPT ---
- History of Present Illness Time Seen by Provider: 04/07/23 10:55 Historian: patient, family Exam Limitations: clinical condition Patient Subjective Stated Complaint: Chest pain, SOB Triage Nursing Assessment: 87 yr old male pt presents to ED via wheelchair with family member. Pt has complaints of pressure in his chest, chest pain and difficulty breathing. Pt reports that pain began approximately 30 minutes prior to arrival. Pt is rating his pain as a 10/10 as a pressure like pain. Pt denies having this type of pain before. Pt has labored breathing on his normal 3L O2 via nasal cannula. Pt is alert and oriented. Physician History: Patient is a 87-year-old white male who has COPD who awoke this morning at 2:30 AM with chest pain. He was able to relax and eventually the chest pain passed until he awoke later and started to do some light walking and and experienced a return of the chest pain. He was admitted 2 weeks ago for pneumonia he has home O2 at 3 L. He also has a history of cardiac disease. Timing/Duration: today Activities at Onset: activity Quality: fullness, pressure Location: substernal, central Chest Pain Radiation: no radiation Severity of Pain-Max: moderate Severity of Pain-Current: moderate Modifying Factors: Improves With: rest Associated Symptoms: shortness of breath Nitro Today/Relief: 0.4 mg x 1 Aspirin Treatment Today: 81 mg x 1 Allergies/Adverse Reactions: No Known Drug Allergies Allergy (Verified 03/25/23 03:57) Hx Tetanus, Diphtheria Vaccination/Date Given: No Hx Influenza Vaccination/Date Given: No Hx Pneumococcal Vaccination/Date Given: No Immunizations Up to Date: No Travel Risk - International Travel Have you traveled outside of the country in past 3 weeks: No - Coronavirus Screening Are you exhibiting any of the following symptoms?: Yes Symptoms: Shortness of Breath Close contact with a COVID-19 positive Pt in past 14-21 Days: No - Vaccine Status Have you recieved a Covid-19 vaccination: No - Review of Systems Constitutional: Weakness, No Fever, No Chills Eyes: No Symptoms Ears, Nose, & Throat: No Symptoms Respiratory: Dyspnea, Dyspnea on Exertion ([place]), No Cough Cardiac: Chest Pain, Palpitations, No Edema, No Syncope Abdominal/Gastrointestinal: No Abdominal Pain, No Nausea, No Vomiting, No Diarrhea Genitourinary Symptoms: No Dysuria Musculoskeletal: No Back Pain, No Neck Pain Skin: No Rash Neurological: No Dizziness, No Focal Weakness, No Sensory Changes Psychological: No Symptoms Endocrine: No Symptoms All Other Systems: Reviewed and Negative - Past Medical History Pertinent Past Medical History: No Neurological History: No Pertinent History ENT History: No Pertinent History Cardiac History: No Pertinent History Respiratory History: COPD Endocrine Medical History: No Pertinent History Musculoskeletal History: No Pertinent History GI Medical History: Hernia History: No Pertinent History Psycho-Social History: No Pertinent History Male Reproductive Disorders: No Pertinent History - Past Surgical History Past Surgical History: Yes Neuro Surgical History: No Pertinent History Cardiac: No Pertinent History Respiratory: No Pertinent History Gastrointestinal: No Pertinent History Genitourinary: No Pertinent History Musculoskeletal: No Pertinent History Male Surgical History: Other Other Surgical History: hydrocele surgery in 1989 - Social History Smoking Status: Current every day smoker How long have you smoked: 79 years Exposure to second hand smoke: Yes Drug Use: none Patient Lives Alone: Yes - Nursing Vital Signs Nursing Vital Signs: Initial Vital Signs Temperature 98.1 F 04/07/23 10:47 Pulse Rate 112 H 04/07/23 10:47 Respiratory Rate 04/07/23 10:47 Blood Pressure 173/90 04/07/23 10:47 Pain Scale Pain Intensity 6 - Physical Exam General Appearance: moderate distress Eye Exam: PERRL/EOMI, eyes nml inspection Ears, Nose, Throat Exam: normal ENT inspection, moist mucous membranes Neck Exam: normal inspection, non-tender, supple, full range of motion Respiratory Exam: diminished breath sounds, crackles/rales Cardiovascular Exam: tachycardia Rectal Exam: deferred Back Exam: normal inspection Extremity Exam: normal inspection Neurologic Exam: oriented x 3, cooperative Skin Exam: normal color, warm, dry SpO2 Interpretation: hypoxic, O2 applied SpO2: 96 O2 Delivery: Nasal Cannula (3 L) - Course Nursing assessment & vital signs reviewed: Yes EKG Interpreted by Me: RATE (111), Sinus Tach, NORMAL AXIS, Non-specific ST Changes - Radiology Exams Chest X-ray Interpretation: Reviewed by me - CT Exams Chest CT Interpretation: Other (CT scan a of the chest showed no pulmonary emboli and did show resolving left lower lobe pneumonia) Ordered Tests: Active Orders 24 hr Category Date Time Status CHEST 1 VIEW (PORTABLE) Stat Exams 04/07/23 10:52 Completed CHEST WITH CONTRAST [CT] Stat Exams 04/07/23 11:55 Completed CBC W DIFF Stat Lab 04/07/23 11:07 Completed CMP Stat Lab 04/07/23 11:07 Completed D-DIMER QUANTITATIVE Stat Lab 04/07/23 11:07 Completed NT PRO BNPII Stat Lab 04/07/23 11:07 Completed PROTIME WITH INR Stat Lab 04/07/23 11:07 Completed PTT Stat Lab 04/07/23 11:07 Completed TROPONIN Q4H Lab 04/07/23 11:07 Completed TROPONIN Q4H Lab 04/07/23 15:12 Completed TROPONIN Q4H Lab 04/07/23 19:00 Ordered Medication Summary Generic Name Dose Route Start Last Admin Trade Name Freq PRN Reason Stop Dose Admin Sodium Chloride 1,000 mls @ 100 mls/hr 04/07/23 11:00 04/07/23 11:10 Sodium Chloride 0.9% 1000 Ml IV 05/07/23 10:59 100 mls/hr .Q10H ROSARIO Administration Discontinued Medications Generic Name Dose Route Start Last Admin Trade Name Freq PRN Reason Stop Dose Admin Aspirin 324 mg 04/07/23 10:51 04/07/23 11:13 Aspirin 81 Mg Tab.Chew PO 04/07/23 10:52 243 mg STAT ONE Administration Aspirin Confirm 04/07/23 11:08 Aspirin 81 Mg Tab.Chew Administered 04/07/23 11:09 Dose 324 mg .ROUTE .STK-MED ONE Nitroglycerin 0.4 mg 04/07/23 10:51 04/07/23 11:10 Nitroglycerin 0.4 Mg (Ed) 0.4 Mg Tab.Subl SL 04/07/23 10:52 0.4 mg STAT ONE Administration Nitroglycerin Confirm 04/07/23 11:09 Nitroglycerin 0.4 Mg (Ed) 0.4 Mg Tab.Subl Administered 04/07/23 11:10 Dose 0.4 mg SL .STK-MED ONE Lab/Rad Data: Laboratory Result Diagrams 04/07/23 11:07 04/07/23 11:07 Laboratory Results 04/07/23 04/07/23 04/07/23 Range/Units 15:12 11:55 11:07 WBC (4.0-10.5) x10^3/uL RBC (4.1-5.6) x10^6/uL Hgb (12.5-18.0) g/dL Hct (42-50) % MCV (78-100) fL MCH (26-32) pg MCHC (32-36) g/dL RDW (11.5-14.0) % Plt Count (150-450) x10^3/uL MPV (7.5-11.0) fL Gran % (36.0-66.0) % Immature Gran % (Auto) (0.00-0.4) % Nucleat RBC Rel Count (0.00-0.1) % Eos # (Auto) (0-0.5) x10^3/uL Immature Gran # (Auto) (0.00-0.03) x10^3u/L Absolute Lymphs (auto) (1.0-4.6) x10^3/uL Absolute Monos (auto) (0.0-1.3) x10^3/uL Absolute Nucleated RBC (0.00-0.01) x10^3u/L Lymphocytes % (24.0-44.0) % Monocytes % (0.0-12.0) % Eosinophils % (0.00-5.0) % Basophils % (0.0-0.4) % Absolute Granulocytes (1.4-6.9) x10^3/uL Basophils # (0-0.4) x10^3/uL PT (9.4-12.5) SECONDS INR (0.8-3.0) APTT (25.1-36.5) SECONDS D-Dimer (0.0-0.50) mg/L Sodium (137-145) mmol/L Potassium (3.5-5.1) mmol/L Chloride (98-107) mmol/L Carbon Dioxide (22-30) mmol/L Anion Gap (5-15) MEQ/L BUN (9-20) mg/dL Creatinine (0.66-1.25) mg/dL Estimated GFR ML/MIN Glucose (74-106) mg/dL Calcium (8.4-10.2) mg/dL Total Bilirubin (0.2-1.3) mg/dL AST (17-59) U/L ALT (0-50) U/L Alkaline Phosphatase (38-126) U/L Troponin I 0.054 H* 0.043 H* (0.000-0.034) ng/mL NT-Pro-B Natriuret Pep (<300) pg/mL Serum Total Protein (6.3-8.2) g/dL Albumin (3.5-5.0) g/dL Influenza Type A Ag NEGATIVE (NEGATIVE) Influenza Type B Ag NEGATIVE (NEGATIVE) RSV (PCR) NEGATIVE (NEGATIVE) SARS-CoV-2 (PCR) NEGATIVE (NEGATIVE) Slides for Path Review 04/07/23 04/07/23 04/07/23 Range/Units 11:07 11:07 11:07 WBC 13.6 H (4.0-10.5) x10^3/uL RBC 3.24 L (4.1-5.6) x10^6/uL Hgb 9.5 L (12.5-18.0) g/dL Hct 30.2 L (42-50) % MCV 93.2 (78-100) fL MCH 29.3 (26-32) pg MCHC 31.5 L (32-36) g/dL RDW 26.7 H (11.5-14.0) % Plt Count 325 (150-450) x10^3/uL MPV 10.7 (7.5-11.0) fL Gran % 79.8 H (36.0-66.0) % Immature Gran % (Auto) 1.8 H (0.00-0.4) % Nucleat RBC Rel Count 0.0 (0.00-0.1) % Eos # (Auto) 0.03 (0-0.5) x10^3/uL Immature Gran # (Auto) 0.24 H (0.00-0.03) x10^3u/L Absolute Lymphs (auto) 0.48 L (1.0-4.6) x10^3/uL Absolute Monos (auto) 1.98 H (0.0-1.3) x10^3/uL Absolute Nucleated RBC 0.00 (0.00-0.01) x10^3u/L Lymphocytes % 3.5 L (24.0-44.0) % Monocytes % 14.6 H (0.0-12.0) % Eosinophils % 0.2 (0.00-5.0) % Basophils % 0.1 (0.0-0.4) % Absolute Granulocytes 10.83 H (1.4-6.9) x10^3/uL Basophils # 0.02 (0-0.4) x10^3/uL PT 10.1 (9.4-12.5) SECONDS INR 0.92 (0.8-3.0) APTT 25.0 L (25.1-36.5) SECONDS D-Dimer 0.80 H* (0.0-0.50) mg/L Sodium 136 L (137-145) mmol/L Potassium 4.6 (3.5-5.1) mmol/L Chloride 102 (98-107) mmol/L Carbon Dioxide 32 H (22-30) mmol/L Anion Gap 5.7 (5-15) MEQ/L BUN 20 (9-20) mg/dL Creatinine 0.49 L (0.66-1.25) mg/dL Estimated GFR 100.6 ML/MIN Glucose 98 (74-106) mg/dL Calcium 8.8 (8.4-10.2) mg/dL Total Bilirubin 0.40 (0.2-1.3) mg/dL AST 24 (17-59) U/L ALT 32 (0-50) U/L Alkaline Phosphatase 59 (38-126) U/L Troponin I (0.000-0.034) ng/mL NT-Pro-B Natriuret Pep 3720 (<300) pg/mL Serum Total Protein 6.7 (6.3-8.2) g/dL Albumin 4.3 (3.5-5.0) g/dL Influenza Type A Ag (NEGATIVE) Influenza Type B Ag (NEGATIVE) RSV (PCR) (NEGATIVE) SARS-CoV-2 (PCR) (NEGATIVE) Slides for Path Review YES - Progress Progress: improved Air Movement: fair Blood Culture(s) Obtained: No Antibiotics given: No Medical Desision Making - Discussion of managment Care discussed with:: hospitalist (Dr. Mejía) Reviewed:: Test results Agreed on:: Treatment plan, decision to admit Will see patient: in hospital - Diagnostic Testing Diagnostic test were ordered, analyzed, and reviewed by me: Yes Radiological Interpretation: Reviewed by me - Risk of complications The pt has a mod risk of morbidity or mortality based on: Need for prescription drug management - Departure Departure Disposition: Observation Clinical Impression: Chest pain, COPD exacerbation Condition: Stable Critical Care Time: No Referrals: BARBARA DOZIER MD [Primary Care Provider] - Follow up/PCP as directed Instructions: Chronic Obstructive Pulmonary Disease
[2023-04-07] MEDS ORDERED: NON-FORMULARY ITEM (Budesonide/Formoterol Fumarate [Budesonide-Formoterol 160-4.5] 10.2 GM IH PRN (18:16)
[2023-04-07] MEDS ORDERED: DUONEB 0.5-3 MG/3 ml Neb IH PRN (18:16)
--- NOTE | 2023-04-07 18:36 | PCM.HP ---
History of Present Illness - Chief Complaint Chief Complaint: COPD exacerbation, CP Date: 04/07/23 History of Present Illness: is a 87 year old male with PMHX of COPD ( 3lNC baseline), CAD, HTN, GERD, daily smoker ( <1ppd), and chronic anemia. He started having CP at 6:30 this am after getting up and getting his morning coffee. He states it is more pressure than pain. He has an upcoming appointment for a cardiac stress test at [facility]. He follows Dr. Gregory for pulmonology. He was admitted 2 weeks ago for pneumonia. He states he has no CP or pressure at this time. He is on his baseline oxygen of 3lNC. Labs negative for flu, COVID RSV. He was started on antibiotics in the ER. Will continue with antibiotics for COPD exacerbation. Continue to trend troponins. If sxs improve will d/c tomorrow. He denies any further concerns at this time. - Review of Systems Constitutional: No Fever, No Chills Eyes: No Symptoms Ears, Nose, & Throat: No Symptoms Respiratory: Short Of Breath, Wheezing, No Cough Cardiac: Chest Pain (chest pressure not pain), No Edema, No Syncope Abdominal/Gastrointestinal: No Abdominal Pain, No Nausea, No Vomiting, No Diarrhea Genitourinary Symptoms: No Dysuria Musculoskeletal: No Back Pain, No Neck Pain Skin: No Rash Neurological: No Dizziness, No Focal Weakness, No Sensory Changes Psychological: No Symptoms Endocrine: No Symptoms Hematologic/Lymphatic: No Symptoms Immunological/Allergic: No Symptoms Medications & Allergies Home Medications: Home Medication List Albuterol/Ipratropium 3ml Neb* [DUONEB 0.5-3 MG/3 ml Neb] 3 ml IH Q6HPRN PRN 30 Days #120 amp 03/26/23 [Rx Confirmed 04/07/23] Aspirin EC 81 mg [Ecotrin 81 mg] 81 mg PO DAILY 30 Days #30 tablet 03/26/23 [Rx Confirmed 04/07/23] Budesonide/Formoterol Fumarate [Budesonide-Formoterol 160-4.5] 2 puff IH BID PRN 30 Days #1 inhaler 03/26/23 [Rx Confirmed 04/07/23] Famotidine 20 mg [Pepcid 20 MG] 20 mg PO BID 30 Days #60 tablet 03/26/23 [Rx Confirmed 04/07/23] Guaifenesin 600 mg ER [Mucinex 600MG ER Tabs] 1,200 mg PO BID 7 Days #14 tablet 03/26/23 [Rx Confirmed 04/07/23] Lactobacillus Acidophilus [Acidophilus TABLET] 1 tab PO DAILY tablet 03/26/23 [Rx Confirmed 04/07/23] Losartan Potassium 50 mg [Cozaar 50 MG] 25 mg PO DAILY 30 Days #30 tablet 03/26/23 [Rx Confirmed 04/07/23] Allergies/Adverse Reactions: Allergies Allergy/AdvReac Type Severity Reaction Status Date / Time No Known Drug Allergies Allergy Verified 03/25/23 03:57 - Past Medical History Past Medical History: No Neurological History: No Pertinent History ENT History: No Pertinent History Cardiac History: No Pertinent History Respiratory History: COPD Endocrine Medical History: No Pertinent History Musculoskelatal History: No Pertinent History GI Medical History: Hernia History: No Pertinent History Pyscho-Social History: No Pertinent History Male Reproductive Disorders: No Pertinent History - Past Surgical History Past Surgical History: Yes Neuro Surgical History: No Pertinent History Cardiac History: No Pertinent History Respiratory Surgery: No Pertinent History GI Surgical History: No Pertinent History Genitourinary Surgical Hx: No Pertinent History Musculskeletal Surgical Hx: No Pertinent History Male Surgical History: Other Other Surgical History: hydrocele surgery in 1989 - Social History Smoking Status: Current every day smoker How long have you smoked: 79 years Exposure to second hand smoke: Yes Alcohol: Daily Drug Use: none - Physical Exam Vital Signs: Vital Signs - 24 hr Temp Pulse Resp BP BP Pulse Ox 04/07/23 17:50 96 04/07/23 17:30 153/82 04/07/23 17:00 84 19 139/86 96 04/07/23 16:30 89 23 153/74 100 04/07/23 16:00 85 20 142/74 100 04/07/23 15:31 83 17 151/81 100 04/07/23 15:00 99 H 18 148/69 04/07/23 14:30 87 20 146/78 100 04/07/23 14:00 87 21 155/77 04/07/23 13:30 84 18 158/73 02/12/24 13:00 97 H 20 157/77 04/07/23 12:51 118 H 19 04/07/23 12:00 155/68 04/07/23 11:30 83 22 148/73 98 04/07/23 11:00 102 H 23 161/89 94 L 04/07/23 10:47 98.1 F 112 H 24 173/90 General Appearance: no apparent distress, alert, thin Neurologic Exam: alert, oriented x 3, cooperative, normal mood/affect, nml cerebellar function, nml station & gait, sensation nml, No motor deficits Eye Exam: PERRL/EOMI, eyes nml inspection Ears, Nose, Throat Exam: normal ENT inspection, TMs normal, pharynx normal, moist mucous membranes Neck Exam: normal inspection, non-tender, supple, full range of motion Respiratory Exam: normal breath sounds, lungs clear, wheezing, No respiratory distress Cardiovascular Exam: regular rate/rhythm, normal heart sounds, normal peripheral pulses Gastrointestinal/Abdomen Exam: soft, normal bowel sounds, No tenderness, No mass Back Exam: normal inspection, normal range of motion, No CVA tenderness, No vertebral tenderness Extremity Exam: normal inspection, normal range of motion, pelvis stable Skin Exam: normal color, warm, dry, No rash Lymphatic Exam: No adenopathy Results - Labs Lab/Micro Results: Lab Results-Last 24 Hours 04/07/23 04/07/23 04/07/23 Range/Units 11:07 11:07 11:07 WBC 13.6 H (4.0-10.5) x10^3/uL RBC 3.24 L (4.1-5.6) x10^6/uL Hgb 9.5 L (12.5-18.0) g/dL Hct 30.2 L (42-50) % MCV 93.2 (78-100) fL MCH 29.3 (26-32) pg MCHC 31.5 L (32-36) g/dL RDW 26.7 H (11.5-14.0) % Plt Count 325 (150-450) x10^3/uL MPV 10.7 (7.5-11.0) fL Gran % 79.8 H (36.0-66.0) % Immature Gran % (Auto) 1.8 H (0.00-0.4) % Nucleat RBC Rel Count 0.0 (0.00-0.1) % Eos # (Auto) 0.03 (0-0.5) x10^3/uL Immature Gran # (Auto) 0.24 H (0.00-0.03) x10^3u/L Absolute Lymphs (auto) 0.48 L (1.0-4.6) x10^3/uL Absolute Monos (auto) 1.98 H (0.0-1.3) x10^3/uL Absolute Nucleated RBC 0.00 (0.00-0.01) x10^3u/L Lymphocytes % 3.5 L (24.0-44.0) % Monocytes % 14.6 H (0.0-12.0) % Eosinophils % 0.2 (0.00-5.0) % Basophils % 0.1 (0.0-0.4) % Absolute Granulocytes 10.83 H (1.4-6.9) x10^3/uL Basophils # 0.02 (0-0.4) x10^3/uL PT 10.1 (9.4-12.5) SECONDS INR 0.92 (0.8-3.0) APTT 25.0 L (25.1-36.5) SECONDS D-Dimer 0.80 H* (0.0-0.50) mg/L Sodium 136 L (137-145) mmol/L Potassium 4.6 (3.5-5.1) mmol/L Chloride 102 (98-107) mmol/L Carbon Dioxide 32 H (22-30) mmol/L Anion Gap 5.7 (5-15) MEQ/L BUN 20 (9-20) mg/dL Creatinine 0.49 L (0.66-1.25) mg/dL Estimated GFR 100.6 ML/MIN Glucose 98 (74-106) mg/dL Calcium 8.8 (8.4-10.2) mg/dL Total Bilirubin 0.40 (0.2-1.3) mg/dL AST 24 (17-59) U/L ALT 32 (0-50) U/L Alkaline Phosphatase 59 (38-126) U/L Troponin I (0.000-0.034) ng/mL NT-Pro-B Natriuret Pep 3720 (<300) pg/mL Serum Total Protein 6.7 (6.3-8.2) g/dL Albumin 4.3 (3.5-5.0) g/dL Influenza Type A Ag (NEGATIVE) Influenza Type B Ag (NEGATIVE) RSV (PCR) (NEGATIVE) SARS-CoV-2 (PCR) (NEGATIVE) Slides for Path Review YES 04/07/23 04/07/23 04/07/23 Range/Units 11:07 11:55 15:12 WBC (4.0-10.5) x10^3/uL RBC (4.1-5.6) x10^6/uL Hgb (12.5-18.0) g/dL Hct (42-50) % MCV (78-100) fL MCH (26-32) pg MCHC (32-36) g/dL RDW (11.5-14.0) % Plt Count (150-450) x10^3/uL MPV (7.5-11.0) fL Gran % (36.0-66.0) % Immature Gran % (Auto) (0.00-0.4) % Nucleat RBC Rel Count (0.00-0.1) % Eos # (Auto) (0-0.5) x10^3/uL Immature Gran # (Auto) (0.00-0.03) x10^3u/L Absolute Lymphs (auto) (1.0-4.6) x10^3/uL Absolute Monos (auto) (0.0-1.3) x10^3/uL Absolute Nucleated RBC (0.00-0.01) x10^3u/L Lymphocytes % (24.0-44.0) % Monocytes % (0.0-12.0) % Eosinophils % (0.00-5.0) % Basophils % (0.0-0.4) % Absolute Granulocytes (1.4-6.9) x10^3/uL Basophils # (0-0.4) x10^3/uL PT (9.4-12.5) SECONDS INR (0.8-3.0) APTT (25.1-36.5) SECONDS D-Dimer (0.0-0.50) mg/L Sodium (137-145) mmol/L Potassium (3.5-5.1) mmol/L Chloride (98-107) mmol/L Carbon Dioxide (22-30) mmol/L Anion Gap (5-15) MEQ/L BUN (9-20) mg/dL Creatinine (0.66-1.25) mg/dL Estimated GFR ML/MIN Glucose (74-106) mg/dL Calcium (8.4-10.2) mg/dL Total Bilirubin (0.2-1.3) mg/dL AST (17-59) U/L ALT (0-50) U/L Alkaline Phosphatase (38-126) U/L Troponin I 0.043 H* 0.054 H* (0.000-0.034) ng/mL NT-Pro-B Natriuret Pep (<300) pg/mL Serum Total Protein (6.3-8.2) g/dL Albumin (3.5-5.0) g/dL Influenza Type A Ag NEGATIVE (NEGATIVE) Influenza Type B Ag NEGATIVE (NEGATIVE) RSV (PCR) NEGATIVE (NEGATIVE) SARS-CoV-2 (PCR) NEGATIVE (NEGATIVE) Slides for Path Review - Radiology Impressions Radiology Exams & Impressions: Radiology Procedures Category Date Time Status CHEST 1 VIEW (PORTABLE) Stat Exams 04/07/23 10:52 Completed CHEST WITH CONTRAST [CT] Stat Exams 04/07/23 11:55 Completed - Other Procedures and Tests Respiratory Therapy 04/07/23 17:51 Oxygen Nasal Cannula 3 lpm Assessment/Plan (1) COPD exacerbation Current Visit: Yes Status: Chronic Assessment & Plan: - Ceftriaxone IV daily - steroids PO - Chad - [facility] - Dr. Gregory - At baseline O2 at 3LNC - recent admission with pneumonia dx - CT chest 04/07: Impression 1. Continue negative pulmonary embolus compared to ER CT exam 2 weeks ago. 2. Improving left lower lobe infiltrate with now minimal atelectasis/scarring. 3. Again pulmonary emphysema, arteriosclerotic disease, bilateral adrenal hypertrophy, chronic bony findings, and old granulomatous disease. -Chest XR 04/07 Portable chest again demonstrates COPD. Improving previous left lower lobe infiltrate with tiny residual remaining. Remaining heart and lungs unremarkable. Bony thorax intact again with osteopenia, degenerative changes, and scoliosis. - PT eval for pulm rehab OP Code(s): J44.1 - CHRONIC OBSTRUCTIVE PULMONARY DISEASE W (ACUTE) EXACERBATION (2) Elevated troponin Current Visit: No Status: Chronic Assessment & Plan: - Trop 0.043, 0.054 - Trend trop - EKG - Has OP stress test scheduled for - Pt unsure of who ordered testing - Tele Code(s): R79.89 - OTHER SPECIFIED ABNORMAL FINDINGS OF BLOOD CHEMISTRY (3) Feeling of chest tightness Current Visit: Yes Status: Acute Assessment & Plan: - 2/2 COPD exacerbation- see above plan - Tele Code(s): R07.89 - OTHER CHEST PAIN (4) Chronic anemia Current Visit: Yes Status: Acute Assessment & Plan: - Hgb 9.5 - Anemia panel - appears chronic after reviewing old records Code(s): D64.9 - ANEMIA, UNSPECIFIED (5) Smoker unmotivated to quit Current Visit: Yes Status: Chronic Assessment & Plan: - advised cessation - nicotine patch Code(s): F17.200 - NICOTINE DEPENDENCE, UNSPECIFIED, UNCOMPLICATED (6) Underweight Current Visit: Yes Status: Acute Assessment & Plan: - nutritional consult - BMI 18 VTE: lovenox PPI: pepcid Next of Kin: Yoly Rod [phone] Code status: SCO/DNR D/C plan: 1-2 days Code(s): R63.6 - UNDERWEIGHT
[2023-04-07 19:05] LABS: RETICULOCYTE % 4.4 % (0.6-2.6); RETICULOCYTE HEMOGLOBIN 34.4 pg (28-38)
[2023-04-07] MEDS: DUONEB 0.5-3 MG/3 ml Neb IH SCH (19:07)
[2023-04-07] MEDS: Nicoderm CQ 21 MG TOP SCH (19:21)
[2023-04-07 19:36] LABS: Iron 69 ug/dL (49-181); Iron Saturation 20 % (20-39); TIBC 350 ug/dL (261-497)
[2023-04-07] MEDS: ROCEPHIN 1 GM / 100 ML NaCl 1 GM/100 ML IVPB IV SCH (19:37)
[2023-04-07] MEDS: DELTASONE 20 MG PO SCH (21:49)
[2023-04-07] MEDS: Pepcid 20 MG PO SCH (21:50)
[2023-04-07] MEDS: Mucinex 600MG ER Tabs PO SCH (21:50)
[2023-04-07 23:45] LABS: Folate (Folic Acid) 11.8 ng/mL (2.76 - >20)
[2023-04-08] MEDS ORDERED: Sodium Chloride 0.9% 1000 ML 1,000 ML ONE (03:57)
[2023-04-08 05:26] LABS: Hematocrit 28.3 % (42-50); Hemoglobin 8.9 g/dL (12.5-18.0); Mean Cell Volume 92.8 fL (78-100); Mean Corpuscular Hemoglobin 29.2 pg (26-32); Mean Corpuscular Hgb Concent. 31.4 g/dL (32-36); Mean Platelet Volume 10.4 fL (7.5-11.0); Platelet Count 332 x10^3/uL (150-450); Red Blood Count 3.05 x10^6/uL (4.1-5.6); Red Cell Distribution Width 26.7 % (11.5-14.0); White Blood Count 9.7 x10^3/uL (4.0-10.5)
[2023-04-08] MEDS: DUONEB 0.5-3 MG/3 ml Neb IH SCH (05:28)
[2023-04-08 06:26] LABS: ALBUMIN 4.1 g/dL (3.5-5.0); ANION GAP 6.3 MEQ/L (5-15); BILIRUBIN,TOTAL 0.5 mg/dL (0.2-1.3); Calcium 8.3 mg/dL (8.4-10.2); Creatinine 1 0.48 mg/dL (0.66-1.25); EST GLOMERULAR FILTRATION RATE 101.2 ML/MIN; Potassium 4.2 mmol/L (3.5-5.1); Total Protein 6.5 g/dL (6.3-8.2)
[2023-04-08] MEDS ORDERED: Advair Hfa 115/21 Common canister IH PRN (07:03)
[2023-04-08 08:19] LABS: Slide Review YES
[2023-04-08] MEDS: Acidophilus TABLET PO SCH (11:23)
[2023-04-08] MEDS: ECOTRIN 81 MG PO SCH (11:23)
[2023-04-08] MEDS: Cozaar 50 MG PO SCH (11:24)
--- NOTE | 2023-04-08 11:31 | PCM.DS ---
Discharge Summary Date of Admission: 04/07/23 17:45 Date of Discharge: 04/08/23 Admitting Physician: RUTHIE BECK MD Consults: Consults on Case 04/07/23 18:38 Nutritional Consult ROUTINE Primary Care Provider: BARBARA DOZIER Allergies Allergies No Known Drug Allergies Allergy (Verified 03/25/23 03:57) Hospital Summary - Hospital Course Hospital Course: 04/07/23 is a 87 year old male with PMHX of COPD ( 3lNC baseline), CAD, HTN, GERD, daily smoker ( <1ppd), and chronic anemia. He started having CP at 6:30 this am after getting up and getting his morning coffee. He states it is more pressure than pain. He has an upcoming appointment for a cardiac stress test at [place]. He follows Dr. Amato for pulmonology. He was admitted 2 weeks ago for pneumonia. He states he has no CP or pressure at this time. He is on his baseline oxygen of 3lNC. Labs negative for flu, COVID RSV. He was started on antibiotics in the ER. Will continue with antibiotics for COPD exacerbation. Continue to trend troponins. If sxs improve will d/c tomorrow. He denies any further concerns at this time. 04/08/23 Pt sitting up in bed. He explains he feels better and would like to go home. Dyspena has improved. He denies any further chest pressure. He is requesting a hospital bed and portable oxygen tank he can carry on his shoulder for home. He currently has hospice. Case management to reach out to the company pt is associated with for more assistance and home needs. Pt to f/u for OP stress test his week as scheduled. - Vitals & Intake/Output Vital Signs: Vital Signs Temperature 97.3 F 04/08/23 07:50 Pulse Rate 86 04/08/23 07:50 Respiratory Rate 20 04/08/23 07:50 Blood Pressure 149/66 04/08/23 07:50 O2 Sat by Pulse Oximetry 99 04/08/23 07:50 Intake & Output: Intake & Output 04/05/23 04/06/23 04/07/23 04/08/23 11:59 11:59 11:59 11:59 Intake Total 760 Balance 760 Weight 55.4 kg 53.8 kg - Lab Result Diagrams: 04/08/23 04:00 04/08/23 04:44 Lab Results-Last 24 Hrs: Lab Results-Last 24 Hours 04/07/23 04/07/23 04/07/23 Range/Units 11:07 11:07 11:07 WBC (4.0-10.5) x10^3/uL RBC (4.1-5.6) x10^6/uL Hgb (12.5-18.0) g/dL Hct (42-50) % MCV (78-100) fL MCH (26-32) pg MCHC (32-36) g/dL RDW (11.5-14.0) % Plt Count (150-450) x10^3/uL MPV (7.5-11.0) fL Reticulocyte % (Auto) (0.6-2.6) % Retic Hgb Content (28-38) pg PT 10.1 (9.4-12.5) SECONDS INR 0.92 (0.8-3.0) APTT 25.0 L (25.1-36.5) SECONDS D-Dimer 0.80 H* (0.0-0.50) mg/L Sodium 136 L (137-145) mmol/L Potassium 4.6 (3.5-5.1) mmol/L Chloride 102 (98-107) mmol/L Carbon Dioxide 32 H (22-30) mmol/L Anion Gap 5.7 (5-15) MEQ/L BUN 20 (9-20) mg/dL Creatinine 0.49 L (0.66-1.25) mg/dL Estimated GFR 100.6 ML/MIN Glucose 98 (74-106) mg/dL POC Glucometer (74 to 106) mg/dL Calcium 8.8 (8.4-10.2) mg/dL Iron (49-181) ug/dL TIBC (261-497) ug/dL Iron Saturation (20-39) % Ferritin (17.9-464) ng/mL Total Bilirubin 0.40 (0.2-1.3) mg/dL AST 24 (17-59) U/L ALT 32 (0-50) U/L Alkaline Phosphatase 59 (38-126) U/L Troponin I (0.000-0.034) ng/mL NT-Pro-B Natriuret Pep 3720 (<300) pg/mL Serum Total Protein 6.7 (6.3-8.2) g/dL Albumin 4.3 (3.5-5.0) g/dL Vitamin B12 (239-931) pg/mL Folic Acid (2.76 - >20) ng/mL Influenza Type A Ag (NEGATIVE) Influenza Type B Ag (NEGATIVE) RSV (PCR) (NEGATIVE) SARS-CoV-2 (PCR) (NEGATIVE) Slides for Path Review YES 04/07/23 04/07/23 04/07/23 Range/Units 11:07 11:55 15:12 WBC (4.0-10.5) x10^3/uL RBC (4.1-5.6) x10^6/uL Hgb (12.5-18.0) g/dL Hct (42-50) % MCV (78-100) fL MCH (26-32) pg MCHC (32-36) g/dL RDW (11.5-14.0) % Plt Count (150-450) x10^3/uL MPV (7.5-11.0) fL Reticulocyte % (Auto) (0.6-2.6) % Retic Hgb Content (28-38) pg PT (9.4-12.5) SECONDS INR (0.8-3.0) APTT (25.1-36.5) SECONDS D-Dimer (0.0-0.50) mg/L Sodium (137-145) mmol/L Potassium (3.5-5.1) mmol/L Chloride (98-107) mmol/L Carbon Dioxide (22-30) mmol/L Anion Gap (5-15) MEQ/L BUN (9-20) mg/dL Creatinine (0.66-1.25) mg/dL Estimated GFR ML/MIN Glucose (74-106) mg/dL POC Glucometer (74 to 106) mg/dL Calcium (8.4-10.2) mg/dL Iron (49-181) ug/dL TIBC (261-497) ug/dL Iron Saturation (20-39) % Ferritin (17.9-464) ng/mL Total Bilirubin (0.2-1.3) mg/dL AST (17-59) U/L ALT (0-50) U/L Alkaline Phosphatase (38-126) U/L Troponin I 0.043 H* 0.054 H* (0.000-0.034) ng/mL NT-Pro-B Natriuret Pep (<300) pg/mL Serum Total Protein (6.3-8.2) g/dL Albumin (3.5-5.0) g/dL Vitamin B12 (239-931) pg/mL Folic Acid (2.76 - >20) ng/mL Influenza Type A Ag NEGATIVE (NEGATIVE) Influenza Type B Ag NEGATIVE (NEGATIVE) RSV (PCR) NEGATIVE (NEGATIVE) SARS-CoV-2 (PCR) NEGATIVE (NEGATIVE) Slides for Path Review 04/07/23 04/07/23 04/07/23 Range/Units 19:00 19:00 19:00 WBC (4.0-10.5) x10^3/uL RBC (4.1-5.6) x10^6/uL Hgb (12.5-18.0) g/dL Hct (42-50) % MCV (78-100) fL MCH (26-32) pg MCHC (32-36) g/dL RDW (11.5-14.0) % Plt Count (150-450) x10^3/uL MPV (7.5-11.0) fL Reticulocyte % (Auto) (0.6-2.6) % Retic Hgb Content (28-38) pg PT (9.4-12.5) SECONDS INR (0.8-3.0) APTT (25.1-36.5) SECONDS D-Dimer (0.0-0.50) mg/L Sodium (137-145) mmol/L Potassium (3.5-5.1) mmol/L Chloride (98-107) mmol/L Carbon Dioxide (22-30) mmol/L Anion Gap (5-15) MEQ/L BUN (9-20) mg/dL Creatinine (0.66-1.25) mg/dL Estimated GFR ML/MIN Glucose (74-106) mg/dL POC Glucometer (74 to 106) mg/dL Calcium (8.4-10.2) mg/dL Iron 69 (49-181) ug/dL TIBC 350 (261-497) ug/dL Iron Saturation 20 (20-39) % Ferritin 198 (17.9-464) ng/mL Total Bilirubin (0.2-1.3) mg/dL AST (17-59) U/L ALT (0-50) U/L Alkaline Phosphatase (38-126) U/L Troponin I 0.064 H* (0.000-0.034) ng/mL NT-Pro-B Natriuret Pep (<300) pg/mL Serum Total Protein (6.3-8.2) g/dL Albumin (3.5-5.0) g/dL Vitamin B12 722 (239-931) pg/mL Folic Acid 11.8 (2.76 - >20) ng/mL Influenza Type A Ag (NEGATIVE) Influenza Type B Ag (NEGATIVE) RSV (PCR) (NEGATIVE) SARS-CoV-2 (PCR) (NEGATIVE) Slides for Path Review 04/07/23 04/07/23 04/08/23 Range/Units 19:00 21:24 04:00 WBC 9.7 (4.0-10.5) x10^3/uL RBC 3.05 L (4.1-5.6) x10^6/uL Hgb 8.9 L (12.5-18.0) g/dL Hct 28.3 L (42-50) % MCV 92.8 (78-100) fL MCH 29.2 (26-32) pg MCHC 31.4 L (32-36) g/dL RDW 26.7 H (11.5-14.0) % Plt Count 332 (150-450) x10^3/uL MPV 10.4 (7.5-11.0) fL Reticulocyte % (Auto) 4.4 H (0.6-2.6) % Retic Hgb Content 34.4 (28-38) pg PT (9.4-12.5) SECONDS INR (0.8-3.0) APTT (25.1-36.5) SECONDS D-Dimer (0.0-0.50) mg/L Sodium (137-145) mmol/L Potassium (3.5-5.1) mmol/L Chloride (98-107) mmol/L Carbon Dioxide (22-30) mmol/L Anion Gap (5-15) MEQ/L BUN (9-20) mg/dL Creatinine (0.66-1.25) mg/dL Estimated GFR ML/MIN Glucose (74-106) mg/dL POC Glucometer 109 H (74 to 106) mg/dL Calcium (8.4-10.2) mg/dL Iron (49-181) ug/dL TIBC (261-497) ug/dL Iron Saturation (20-39) % Ferritin (17.9-464) ng/mL Total Bilirubin (0.2-1.3) mg/dL AST (17-59) U/L ALT (0-50) U/L Alkaline Phosphatase (38-126) U/L Troponin I (0.000-0.034) ng/mL NT-Pro-B Natriuret Pep (<300) pg/mL Serum Total Protein (6.3-8.2) g/dL Albumin (3.5-5.0) g/dL Vitamin B12 (239-931) pg/mL Folic Acid (2.76 - >20) ng/mL Influenza Type A Ag (NEGATIVE) Influenza Type B Ag (NEGATIVE) RSV (PCR) (NEGATIVE) SARS-CoV-2 (PCR) (NEGATIVE) Slides for Path Review YES 04/08/23 Range/Units 04:44 WBC (4.0-10.5) x10^3/uL RBC (4.1-5.6) x10^6/uL Hgb (12.5-18.0) g/dL Hct (42-50) % MCV (78-100) fL MCH (26-32) pg MCHC (32-36) g/dL RDW (11.5-14.0) % Plt Count (150-450) x10^3/uL MPV (7.5-11.0) fL Reticulocyte % (Auto) (0.6-2.6) % Retic Hgb Content (28-38) pg PT (9.4-12.5) SECONDS INR (0.8-3.0) APTT (25.1-36.5) SECONDS D-Dimer (0.0-0.50) mg/L Sodium 132 L (137-145) mmol/L Potassium 4.2 (3.5-5.1) mmol/L Chloride 100 (98-107) mmol/L Carbon Dioxide 30 (22-30) mmol/L Anion Gap 6.3 (5-15) MEQ/L BUN 14 (9-20) mg/dL Creatinine 0.48 L (0.66-1.25) mg/dL Estimated GFR 101.2 ML/MIN Glucose 90 (74-106) mg/dL POC Glucometer (74 to 106) mg/dL Calcium 8.3 L (8.4-10.2) mg/dL Iron (49-181) ug/dL TIBC (261-497) ug/dL Iron Saturation (20-39) % Ferritin (17.9-464) ng/mL Total Bilirubin 0.50 (0.2-1.3) mg/dL AST 22 (17-59) U/L ALT 29 (0-50) U/L Alkaline Phosphatase 51 (38-126) U/L Troponin I (0.000-0.034) ng/mL NT-Pro-B Natriuret Pep (<300) pg/mL Serum Total Protein 6.5 (6.3-8.2) g/dL Albumin 4.1 (3.5-5.0) g/dL Vitamin B12 (239-931) pg/mL Folic Acid (2.76 - >20) ng/mL Influenza Type A Ag (NEGATIVE) Influenza Type B Ag (NEGATIVE) RSV (PCR) (NEGATIVE) SARS-CoV-2 (PCR) (NEGATIVE) Slides for Path Review Micro Results-Entire Visit: Accuchecks Date 04/07/23 - Radiology Exams Ordered Rad Exams-Entire Visit: Radiology Procedures Category Date Time Status CHEST 1 VIEW (PORTABLE) Stat Exams 04/07/23 10:52 Completed CHEST WITH CONTRAST [CT] Stat Exams 04/07/23 11:55 Completed - Procedures and Test Procedures and Tests throughout Hospitalization: Therapy Orders & Screens 04/07/23 17:51 Oxygen Nasal Cannula 3 lpm Comment: 04/07/23 18:45 RT Screen per Nursing Assess ONCE Comment: Protocol Order Physician Instructions: Greater than 3 points order RT Admission Screen Reason For Exam: Triggered on Admission Diagnosis: COPD exacerbation, CP Diagnosis: COPD exacerbation, CP Pneumonia: Yes Home O2: Yes Asthma: No CHF: No Home CPAP/BIPAP: No Home Nebs/MDI: Yes Total Points: 13 Smoking Cessation Education ONCE Comment: Diagnosis: COPD exacerbation, CP Smoking Status: Current every day smoker How long have you smoked: 79 years Have you smoked in the past 12 months: Yes Approximately how many cigarettes per day: LESS THEN A PACK Do you dip or chew tobacco: No ST Screen per Nursing Assess ONCE Comment: Protocol Order Physician Instructions: Greater than [address] Admission Screening Reason For Exam: Triggered on Admission Diagnosis: COPD exacerbation, CP CVA/Dyshpagia/Aphasia: No Cognitive Deficits: No Dehydration/Nutrition Deficit: No Reflux: No Oral-Motor Difficulties: No Pneumonia: Yes Mcfp Resident: No Total Points: 5 04/07/23 18:55 PT Eval & Treat (MD Order) ONCE Reason for Eval:: Eval for home needs. Would be a good canidate for OP pulm rehab. Diagnosis: COPD exacerbation 04/07/23 19:09 Respiratory Therapy Assessment DAILY Comment: Diagnosis: COPD exacerbation, CP Discharge Exam General Appearance: no apparent distress, alert Neurologic Exam: alert, oriented x 3, cooperative, normal mood/affect, nml cerebellar function, sensation nml, No motor deficits Eye Exam: PERRL, EOMI, eyes nml inspection Ears, Nose, Throat Exam: normal ENT inspection, pharynx normal, moist mucous membranes Neck Exam: normal inspection, non-tender, supple, full range of motion Respiratory Exam: normal breath sounds, lungs clear, No respiratory distress Cardiovascular Exam: regular rate/rhythm, normal heart sounds Gastrointestinal/Abdomen Exam: soft, No tenderness, No mass Male Genitalia Exam: deferred Rectal Exam: deferred Back Exam: normal inspection, normal range of motion, No CVA tenderness, No vertebral tenderness Extremity Exam: normal inspection, normal range of motion Skin Exam: normal color, warm, dry Final Diagnosis/Problem List - Final Discharge Diagnosis/Problem (1) COPD exacerbation Current Visit: Yes Status: Chronic Code(s): J44.1 - CHRONIC OBSTRUCTIVE PULMONARY DISEASE W (ACUTE) EXACERBATION (2) Elevated troponin Current Visit: No Status: Chronic Code(s): R79.89 - OTHER SPECIFIED ABNORMAL FINDINGS OF BLOOD CHEMISTRY (3) Feeling of chest tightness Current Visit: Yes Status: Acute Code(s): R07.89 - OTHER CHEST PAIN (4) Chronic anemia Current Visit: Yes Status: Acute Code(s): D64.9 - ANEMIA, UNSPECIFIED (5) Smoker unmotivated to quit Current Visit: Yes Status: Chronic Code(s): F17.200 - NICOTINE DEPENDENCE, UNSPECIFIED, UNCOMPLICATED (6) Underweight Current Visit: Yes Status: Acute Assessment & Plan: (1) COPD exacerbation Current Visit: Yes Status: Chronic Assessment & Plan: - Ceftriaxone IV daily - steroids PO - Chad - [employer] Maintenance - Dr. Amato - At baseline O2 at 3LNC - recent admission with pneumonia dx - CT chest 04/07: Impression 1. Continue negative pulmonary embolus compared to ER CT exam 2 weeks ago. 2. Improving left lower lobe infiltrate with now minimal atelectasis/scarring. 3. Again pulmonary emphysema, arteriosclerotic disease, bilateral adrenal hypertrophy, chronic bony findings, and old granulomatous disease. -Chest XR 04/07 Portable chest again demonstrates COPD. Improving previous left lower lobe infiltrate with tiny residual remaining. Remaining heart and lungs unremarkable. Bony thorax intact again with osteopenia, degenerative changes, and scoliosis. - PT eval 04/08 - pt explained he currently has hospice that comes to his home. - Case management to discuss pt needs with hospice - On baseline oxygen Code(s): J44.1 - CHRONIC OBSTRUCTIVE PULMONARY DISEASE W (ACUTE) EXACERBATION (2) Elevated troponin Current Visit: No Status: Chronic Assessment & Plan: - Trop 0.043, 0.054, 0.064 - demand ischemia from COPD - EKG - Has OP stress test scheduled for - Pt unsure of who ordered testing - Tele 04/08 - f/u for OP stress test this week - F/u with cardiology OP Code(s): R79.89 - OTHER SPECIFIED ABNORMAL FINDINGS OF BLOOD CHEMISTRY (3) Feeling of chest tightness Current Visit: Yes Status: Acute Assessment & Plan: - 2/2 COPD exacerbation- see above plan - Tele 04/08 - resolved Code(s): R07.89 - OTHER CHEST PAIN (4) Chronic anemia Current Visit: Yes Status: Acute Assessment & Plan: - Hgb 9.5 - Anemia panel- reviewed - appears chronic after reviewing old records Code(s): D64.9 - ANEMIA, UNSPECIFIED (5) Smoker unmotivated to quit Current Visit: Yes Status: Chronic Assessment & Plan: - advised cessation - nicotine patch Code(s): F17.200 - NICOTINE DEPENDENCE, UNSPECIFIED, UNCOMPLICATED (6) Underweight Current Visit: Yes Status: Acute Assessment & Plan: - nutritional consult - BMI 18 Code(s): R63.6 - UNDERWEIGHT - Discharge Discharge Date: 04/08/23 Disposition: Home, Self-Care Condition: Stable Prescriptions: New Prednisone 20 mg [Deltasone 20 mg] 20 mg PO BID 4 Days #7 tablet Continue Lactobacillus Acidophilus [Acidophilus TABLET] 1 tab PO DAILY tablet Losartan Potassium 50 mg [Cozaar 50 MG] 25 mg PO DAILY 30 Days #30 tablet Aspirin EC 81 mg [Ecotrin 81 mg] 81 mg PO DAILY 30 Days #30 tablet Guaifenesin 600 mg ER [Mucinex 600MG ER Tabs] 1,200 mg PO BID 7 Days #14 tablet Famotidine 20 mg [Pepcid 20 MG] 20 mg PO BID 30 Days #60 tablet Budesonide/Formoterol Fumarate [Budesonide-Formoterol 160-4.5] 2 puff IH BID PRN 30 Days #1 inhaler PRN Reason: Shortness Of Breath/Wheezing Albuterol/Ipratropium 3ml Neb* [DUONEB 0.5-3 MG/3 ml Neb] 3 ml IH Q6HPRN PRN 30 Days #120 amp PRN Reason: Shortness Of Breath/Wheezing Additional Instructions: [facility] WILL CONTACT YOU TO ARRANGE A TIME TO COME MEET WITH YOU ABOUT THEIR SERVICES. THEIR PHONE NUMBER IS [phone] IF YOU NEED ANYTHING BEFORE THEY CONTACT YOU. Follow up with: ELLIOTT AMATO [ACTIVE STAFF] - 04/17/23 11:30 am BARBARA DOZIER MD [Primary Care Provider] - 04/17/23 3:30 pm
[2023-04-08] MEDS: ENOXAPARIN SODIUM SQ SCH (11:38)
[2023-04-08 12:12] VITALS: BP 135/63; PULSE 82; RESP 17; TEMP 97.7; O2SAT 93
[2023-04-08] MEDS ORDERED: ROCEPHIN 1 GM / 100 ML NaCl 1 GM/100 ML IVPB IV SCH (22:00)
== END 2023-04-08 13:06 ==
LOC: ED 10:46 → MED SURG 17:45
PROVIDERS: ADMIT Internal Medicine; ATTEND Internal Medicine
DX: J44.1 Chronic obstructive pulmonary disease with (acute) exacerbation (principal); R79.89 Other specified abnormal findings of blood chemistry; R07.89 Other chest pain; D64.9 Anemia, unspecified; F17.200 Nicotine dependence, unspecified, uncomplicated; R63.6 Underweight; I25.10 Atherosclerotic heart disease of native coronary artery without angina pectoris; I10 Essential (primary) hypertension; K21.9 Gastro-esophageal reflux disease without esophagitis; Z79.899 Other long term (current) drug therapy; Z20.828 Contact with and (suspected) exposure to other viral communicable diseases; Z99.81 Dependence on supplemental oxygen; Z59.82 Transportation insecurity
CPT/HCPCS: 0241U; 36415; 71045; 71260; 80053; 82607; 82728; 82746; 82947; 83540; 83550; 83880; 84484; 85025; 85027; 85045; 85046; 85379; 85610; 85730; 93268; 94640; 94760; 99285; J0696; Q3014; A9270-GY; G0378